=== PATIENT | male | born 1980 | race Caucasian/White ===

== ENCOUNTER 2017-04-04 08:55 | Emergency (ER) | payer BC, SELFPAY ==
[2017-04-04 08:55] VITALS: BP 161/92; PULSE 80; RESP 18; TEMP 36.6; O2SAT 97; BMI 30.2
--- NOTE | 2017-04-04 09:29 | RAD_ITS ---
STUDY: X-RAY - LEFT KNEE REASON FOR EXAM: Male, 36 years old. Lateral knee pain following a fall. TECHNIQUE: 4 view(s) of the knee. COMPARISON: None. FINDINGS: Normal visualized distal femur. Normal visualized proximal tibia and fibula. Normal proximal tibiofibular articulation. Normal medial femorotibial compartment. Normal lateral femorotibial compartment. Normal patellofemoral articulation. Prepatellar soft tissue swelling. RAD/Knee 4 or More Views IMPRESSION: Mild prepatellar soft tissue swelling. Electronically Signed: Matt Mcallister MD at 9:58 EST Tel [phone], Service support ,
--- NOTE | 2017-04-04 09:31 | ED.VISSUMM ---
- ER Visit Summary Date of Service: 04/04/17 Chief Complaint: Left knee pain History of Present Illness: The patient is a 36 M outside his office today slipped on mud and weight high needles injuring his left lower thigh knee area. Is more comfortable to try to bear weight. No prior history. No prior knee surgery. Denies any hip ankle or foot pain. Denies other injuries. No head injury. Physical Examination: Well appearing male. Vital signs are stable afebrile. H EENT exam unremarkable atraumatic. Nontender. Lungs clear to auscultation bilaterally. Heart rate and rhythm no murmur. Chest wall nontender. Abdomen soft nontender. Girdle intact. Nontender. Extremities he has full range of motion all 4 extremities. No deformities. His left lower thigh knee area has tenderness superior lateral to the patella. There is no effusion. There is no swelling. He has full flexion-extension. ACL PCL, MCL and LCL are intact. There is no joint tenderness. The quadriceps patellar and infra patellar tendons are intact. Left lower leg is nontender. The ankle is nontender nonswollen. The left foot is nontender neurovascularly intact. Full dorsi plantar flexion. Achilles tendon is intact. Normal touch sensation. He is able to wiggle his toes. Test Results: Left knee x-ray no acute abnormality per my read radiologist believes he sees suprapatellar soft tissue swelling. There is no acute bony abnormality. No abnormality of the knee joint. Emergency Department Course and Treatment: Repeat exam patient is doing well at 1040. He will be given Motrin for pain. And crutches for ambulation. He was instructed to ice and Motrin for pain. Follow-up with Dr. Srinivasan if he is not improving. Patient does not need narcotics for this. Treatment Plan: Discharged to follow-up with his primary care physician if not improving orthopedic consultation. Disposition: discharge Impression: Fall with left lower thigh muscle strain and knee sprain This note was generated with [employer] dictation software. It may contain incorrect words, spelling, and punctuation that were not noted in review of the chart prior to signing ED Disposition - Plan for ED Patient: Chief Complaint: Lower Extremity Injury Referrals: Ubaldo Srinivasan MD [Primary Care Provider] -
--- NOTE | 2017-04-04 10:47 | ED.DEP ---
ED Disposition - Plan for ED Patient: Disposition: Home or Assisted Living Chief Complaint: Lower Extremity Injury Instructions: ED Sprain Knee, ED Strain Muscle Ext Referrals: Ubaldo Srinivasan MD [Primary Care Provider] - 1 Week if not improving Additional Instructions: Ice to knee and left lower thigh. Motrin for pain and inflammation and Tylenol as needed. Crutches to walk until pain resolving.
--- NOTE | 2017-04-04 11:05 | ED.RN ---
THIS NURSE IN ROOM TO REVIEW D/C INSTRUCTIONS WITH PT. PT DECLINED INSTRUCTIONS. PT DECLINED CRUTCHES STATES I'LL JUST GO GET SOME. WHEN INFORMED TO FOLLOW UP WITH PCP IN 1 WEEK IF NOT IMPROVING PT STATES I HAVE AN APPOINTMENT TODAY AT 3PM BECAUSE YOU ARE JUST NEVERMIND. PT TOOK INSTRUCTIONS FROM THIS NURSE'S HANDS AND REQUESTED A W/C. PT REFUSED UPDATED VITAL SIGNS. THIS NURSE ASSISTED PT TO VEHICLE VIA W/C.
== END 2017-04-04 11:07 | disposition home or self-care (01) ==
PROVIDERS: Emergency Provider Emergency Medicine; Family Provider Family Medicine; PCP Family Medicine
DX: S76.912A Strain of unspecified muscles, fascia and tendons at thigh level, left thigh, initial encounter (principal); S83.92XA Sprain of unspecified site of left knee, initial encounter; W01.0XXA Fall on same level from slipping, tripping and stumbling without subsequent striking against object, initial encounter; Y93.9 Activity, unspecified; Y92.9 Unspecified place or not applicable; J45.909 Unspecified asthma, uncomplicated; F90.9 Attention-deficit hyperactivity disorder, unspecified type; Z72.0 Tobacco use
CPT/HCPCS: 73564; 99282

== ENCOUNTER → 2017-04-11 07:02 | Outpatient (CLI) | payer BC, SELFPAY ==
--- NOTE | 2017-04-11 07:00 | MRI_ITS ---
STUDY: MRI LEFT KNEE REASON FOR EXAM: Pain at the superior aspect the knee, injury, evaluate quadriceps tendon tear. TECHNIQUE: Standardized fat and water weighted pulse sequences were obtained in all 3 orthogonal planes. COMPARISON: Radiographs 04/04/2017. FINDINGS: Normal medial meniscus. Normal hyaline cartilage of the medial femorotibial compartment. Normal medial femoral condyle and tibial plateau. Normal medial collateral ligamentous complex (MCL). Normal distal semimembranosus, gracilis and semitendinosus tendons. Normal lateral meniscus. Normal hyaline cartilage of the lateral femorotibial compartment. Normal lateral femoral condyle and tibial plateau. Normal proximal tibiofibular articulation. Normal lateral collateral (fibular) ligament. Normal popliteus tendon. Normal biceps femoris tendon. Normal anterior cruciate ligament (ACL). Normal posterior cruciate ligament (PCL). Normal congruent patellofemoral articulation. Normal hyaline cartilage of the patellofemoral compartment. There are sprains of the medial and lateral patellar retinaculum (T2 axial image 16). There is a full-thickness tear of the lateral aspect of the distal quadriceps tendon with a gap of approximately 1.6 cm (T2 sagittal images 19-21), a full-thickness tear of the medial aspect of the quadriceps tendon (T2 sagittal images 12, 13) and a high-grade partial tear of the central quadriceps tendon with retraction of the anterior fibers (T2 sagittal images 15-17). There is a hematoma between the quadriceps tendon tear. Normal patellar tendon. Normal Hoffa's fat pad. There is a small joint effusion. There are strains of the distal vastus medialis and lateralis muscles (T2 axial series 4 images 3-7). There is hemorrhage within the prepatellar bursa (T2 sagittal images 13-21) with a hematocrit effect. The otherwise visualized osseous structures are unremarkable. MRI/Lower Ext Joint Only (Routine) IMPRESSION: Full-thickness incomplete tear of the distal quadriceps tendon with hematoma. Strains of the distal vastus medialis and lateralis muscles. Prepatellar bursal fluid. Sprains of the medial and lateral patellar retinaculum. Small joint effusion. Electronically Signed: Chinmay Ewing MD at 8:59 EST Tel , Service support ,
== END ==
PROVIDERS: Family Provider Family Medicine; PCP Family Medicine; Visit Provider Orthopaedic Surgery
DX: S76.112A Strain of left quadriceps muscle, fascia and tendon, initial encounter (principal); S86.212A Strain of muscle(s) and tendon(s) of anterior muscle group at lower leg level, left leg, initial encounter; X58.XXXA Exposure to other specified factors, initial encounter; M25.462 Effusion, left knee
CPT/HCPCS: 73721

== ENCOUNTER 2017-04-12 05:59 | Day surgery (SDC) | payer BC, SELFPAY ==
[2017-04-12] VITALS (11 sets, daily range): BP systolic 147–185; BP diastolic 84–99; PULSE 98–127; RESP 16–20; TEMP 36.6–37.4; O2SAT 90–97; BMI 32.8
[2017-04-12] MEDS: Cefazolin 2 GM in 0.9% Normal Saline 100 ML IV (07:25)
--- NOTE | 2017-04-12 07:40 | PCM.DC.ORTHO ---
Discharge Diet: No Restrictions - leave dressing clean, dry and intact; follow up in one week, call with increased pain, calf pain, numbness, or if other issues arise; elevate right leg, ankle pumps and ice as needed Discharge Activity: May Not Drive May shower in (days): 1 Ice area for (Minutes): 20 - Every hour while awake. Weight Bearing Status: Weight bearing as tolerated Keep extremity elevated above heart level: Operative Extremity Call your doctor if your incision/area has: Continuous Slow Oozing, Sudden Increased Bleeding, Increased Pain/ Swelling, Increased Redness, Foul Smelling Discharge Call your doctor if you observe: Fever of 101 or Higher, Coldness, Increased Pain, Numbness or Tingling, Change in Color, Calf discomfort Allergies/Adverse Reactions: Allergies No Known Allergies Allergy (Verified 04/10/17 15:18) Medications to take at Discharge Albuterol Inhaler [Ventolin Hfa (SP)] 1 - 2 puff INHALATION Q4H PRN PRN 02/18/15 Dextroamphetamine/Amphetamine [Adderall 20 mg Tablet] 20 mg PO BID 02/18/15 Linacolotide [Linzess] 145 mcg PO DAILY PRN 02/18/15 Fluticasone/Salmeterol [Advair 250-50 Diskus] 1 puff INHALATION BID 06/02/16 Albuterol Aerosols [Ventolin Aerosols] 2.5 mg INHALATION PRN PRN 07/12/16 hydrocodone 7.5 mg-acetaminophen 300 mg tablet 1 tab PO Q6H PRN #30 tab 04/04/17 Oxycodone HCl/Acetaminophen [Percocet 5/325] 1 - 2 tablet PO Q6H PRN PRN 5 Days #40 tablet 04/12/17 The following prescriptions were given: Oxycodone HCl/Acetaminophen [Percocet 5/325] 1 - 2 tablet PO Q6H PRN PRN 5 Days #40 tablet PRN Reason: Pain Primary Care Physician: Ubaldo Srinivasan MD [Primary Care Provider] - Please Follow Up With: Padma Ryan DO - [phone]
[2017-04-12] MEDS: Mupirocin Ointment 22gm Tube 1 APPLIC (09:03)
[2017-04-12] MEDS: Bupivacaine 0.25% 30 ML Vial (09:11)
--- NOTE | 2017-04-12 09:27 | PCM.OPRPT ---
Report of Operation Date of Procedure: 04/12/17 Pre-Operative Diagnosis: left quad tendon tear Post-Operative Diagnosis: same Surgery/Procedure Performed:: left quad tendon repair with 4.75 swivel locks arthrex Type of Anesthesia:: General Anesthesiologist: Lonnie Chopra Estimated Blood Loss (mL): minimal Fluids Replaced: 1400 cc lr Description of Procedure: Preoperative note Patient is a 36-year-old male who fell and twisted his knee and had immediate pain and instability inability to extend his knee. Patient was seen in the emergency room x-rays were negative went to his primary care doctor who was possible for ligamentous instabilities is seen in my office that same day. On exam he was noted to not be able to extend his left knee we then confirmed a quad tendon tear with MRI. Risks benefits and alternatives surgery discussed with patient. 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 Patient aware would like proceed with left quad tendon repair. Operative note Patient seen and examined preoperative holding area. Left knee was marked. Patient was brought to the operating room placed supine on the operating table. Sign, anesthesia, antibiotics were administered. The knee was prepped and draped in usual sterile fashion with tourniquet around his upper thigh. Then began by marking out our incision extending from the proximal pole of the patella about 4 cm proximal. We then performed a timeout. We then used a 15 blade cut through the skin and used Bovie to coagulate all bleeders as we dissected down to the quad tendon. The quad tendon was obviously ruptured off of the proximal pole. We debrided back any loose tendon with a combination of Metzenbaums and rongeur. We then able to visualize the insertion on the patella. We debrided back the insertion on the patella to a bleeding bed. We irrigated the incision with copious amounts of sterile saline numerous times throughout the case as patient has had a history of infections and wound complications in the past. We debrided out the old hematoma. We then drilled with a bone stock are 4.75 and then used our for the 4.75 Arthrex swivel lock we placed fiber tape and locking Krak?w stitch fashion up through the lateral and in the medial aspect of the quad tendon and placed both her medial lateral swivel locks and had good tendon bone contact. We then used the remaining stitches within the anchor and oversewed rthe repair and thru the anterior aspect of the proximal patella and retinaculum for extra strength and then closed the retinaculum with 2 o fiber wire laterally and 0 Vicryl medially. Again irrigated with copious amounts of sterile saline. The incision was closed with subcutaneous 2-0 Vicryl and the skin with neyda we did place a Mariah VAC on top of the incision again the patient has had history with poor wound healing as patient is a smoker as well. Sterile dressings were applied and a brace was applied to the left leg. Patient was extubated receive a postop regional block in the PACU. Patient was transferred to recovery room in stable condition. There were no complications Postoperative note Weight-bear as tolerated left leg with knee locked in extension brace at all times Follow-up in 1 week for VAC VAC change Call with increased pain numbness tingling further issues arise Pharmacy has Percocet Call with concerns This note was generated with [employer] software. It may contain incorrect words, spelling, and punctuation that were not noted in checking the note before signing.
[2017-04-12] MEDS: Ipratropium/Albuterol Sulfate 3 ML AMPUL.NEB INHALATION (10:00)
== END 2017-04-12 11:55 | disposition home or self-care (01) ==
LOC: SDC 06:01 → AC 06:02
PROVIDERS: Family Provider Family Medicine; PCP Family Medicine; Visit Provider Orthopaedic Surgery
PROC: (CPT 27385; principal; 2017-04-12 07:15)
DX: S76.112A Strain of left quadriceps muscle, fascia and tendon, initial encounter (principal); W01.0XXA Fall on same level from slipping, tripping and stumbling without subsequent striking against object, initial encounter; Y93.89 Activity, other specified; Y92.9 Unspecified place or not applicable; Y99.0 Civilian activity done for income or pay; J45.909 Unspecified asthma, uncomplicated; F90.9 Attention-deficit hyperactivity disorder, unspecified type; K58.1 Irritable bowel syndrome with constipation; F17.200 Nicotine dependence, unspecified, uncomplicated; Z79.899 Other long term (current) drug therapy
CPT/HCPCS: 27385; 64447; 94640; J7120; J2405

== ENCOUNTER 2017-06-21 14:00 | Outpatient (RCR) | payer BC, SELFPAY ==
--- NOTE | 2017-05-03 12:39 | HP.PTEVAL_ITS ---
Patient's Visit Information KATIE GOMEZ is a 36 year old M referred to Physical Therapy by DO LUIS ALBERTO Betancourt with a diagnosis of L quad tear with reconstruction. Date of Evaluation: 05/01/17 Physical Therapist: Yaron Brown - Visit Plan Frequency: 2-3x /Week Duration: 2-4 Months Plan: Start with PROM of R knee per protocol. Add in glute sets, HS sets, patellar mobs. Progress ROM per protocol, increase 20deg every 4-5 days after 3 weeks post DOS. - Subjective Subjective: Pt. is here today for his initial evaluation with diagnosis of L quad tear with reconstruction. DOS: 04/12/17. Pt. is currently WBAT with crutches with his TROM brace locked in extension. Pt. reports minimal issues with walking and with negotiating steps with HR and step to pattern. Pt. reports icing at home frequently, but no exercises currently. Pt. 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 Pt. did have a wound vac on his incision due to hisorty of MRSA. Pt. is hopeful to get back to a point where he can run, snow board, and complete all gym exercises without issues. - Pain L knee Pain Intensity (Out of 10): 3 Pain Intensity Range: 0, 6 - Objective POSTURE: Pt. has normal knee positioning in stance. Pt. uses brace, pt. has decreased wt. shift to left side, but is able to stand without crutches. PALPATION: PT. has increased tenderness throughout superior aspect of knee. Pt. has increased soreness with palpation throughout thigh as well. Pt. reports no hip soreness or pain in calf. NEUROLOGICAL: Pt. has normal sensation throughout bilateral LEs to light and sharp touch. Pt. has bilateral 2+ achilles tendon DTR. ROM: L ankle full ROM, L hip- flexion, abd, add, ext all with in normal limits. L knee 0-0-28deg. Pt. had increased pain with increased flexion. RLE- ankle/knee/hip all with in normal limits. Pt. has tight HS bilaterally. MMT: RLE- 5/5 throuhgout; LLE- ankle- 5/5; knee- DNT due to surgery risk; hip- flexion 3-/5 abd 3+/5, ext 3+/5. GAIT: Pt. ambulates with minimal wt. bearing through LLE, he ambulates with crutches. STAIRS: Pt. completes withstep to pattern, properly with use of crutches and 1 HR. - Goals Goal 1:: Pt. to be I with HEP. Goal Time Frame: 4-6 Weeks Goal 2:: Pt. to have increased knee ROM to full of L knee. Goal Time Frame: 6-8 Weeks Goal 3:: Pt. to ambulate without AD with normalized gait pattern without increase in symptoms. Goal Time Frame: 4-6 Weeks Goal 4:: Pt. to sleep throughout the night with 0/10 pain in L knee allowing for increased quality of life. Goal Time Frame: 2-4 Weeks Goal 5:: Pt. have increased LLE strength to full 5/5 allowing decreased stress applied to L quad/knee with all functional mobility. Goal Time Frame: 16 weeks Goal 6:: Pt. to get back to all work and recreational activities without limitation. Goal Time Frame: 16 weeks. - Rehabilitation Potential Physical Therapy Diagnosis: Pt. has signs and symptoms consistent with L quad tear and reconstruction. Pt. has subsequent hypomobility, weakness, difficulty with walking, increased pain and difficulty completing all ADLs. Pt. would benefit from PT to increase knee ROM, decrease pain, increase LLE strength, progress back to functional mobility, and progress back to all recreationa/work activities. Rehabilitation Potential: Excellent - Anticipated Interventions Patient/Client Instruction: Educate patient on: Condition, Plan of Care, Risk Factors, Benefits of Fitness Program For the Purpose of:: To foster healthy habits, To improve decision making, To facilitate caregiver knowledge, To improve self management, To prevent re-injury , To improve ability to perform tasks related to life management, To improve tolerance to ADL's Therapeutic Exercise to Include: Strength training, Power training, Balance training, Coordination, Agility training, Body mechanics, Postural training, Flexibilty training, Gait and locomotor training, Passive ROM, Active ROM For the Purpose of:: To decrease pain, To decrease swelling/inflammation, To increase ROM, To improve nutrient delivery to tissue, To increase oxygenation perfusion, To improve muscle performance and motor function, To improve ability to perform ADL's, To increase tolerance to activity/condition/position, To improve gait and locomotor functions, To improve health of tissue, To decrease soft tissue restriction, To increase flexibility/ROM, To improve endurance, To improve balance, To improve safety with gait, To assume or resume ADL's Manual Therapy Techniques to Include: Mobilization, Passive ROM, Soft tissue mobilization For the Purpose of:: To decrease pain, To decrease swelling/inflammation, To increase ROM, To improve nutrient delivery to tissue, To increase oxygenation perfusion, To improve muscle performance and motor function IF ES: Yes Other electric stimulation: Yes - NMES for quad activation Cryotherapy (ice pack, ice massage): Yes For the Purpose of:: To decrease pain, To decrease swelling/inflammation, To increase ROM, To improve nutrient delivery to tissue, To increase oxygenation perfusion, To improve muscle performance and motor function Thank you for the opportunity to evaluate your patient. For Medicare and Medicare HMO plans, please review the plan of care and approve it. It will need to be FAXED BACK to us at [phone] for Medicare purposes. Please let me know if there are questions or concerns regarding this plan of care. Physician Signature: Date:
--- NOTE | 2017-06-20 07:45 | HP.PTREVAL_ITS ---
Padma Ryan, DO, It has been my pleasure to treat KATIE GOMEZ over the last 5 visits for L quad tear with reconstruction. Please see the progress note below for an update on the physical therapy plan of care! Subjective: Pt. reports missing last visit due to family emergency where spouse' s father was having surgery on carotid artery. Pt. reports increased exercises at home. Discussed pt. about functional bracing and how physician said this is okay, but really wants him to be stronger and have better motion prior DCing imobilizer. Objective/Function: Pt. cotinues to have marked knee flexion loss, improved knee ext with over pressure, but lacks TKE with gait. Pt. has increased control with CKC exericses. Pt. again instructed to increase ROM stretching, quad control/strength. Pt. consents. ROM: 0-0-80 deg PROM. 0-0-70 AROM. L knee. Disscussed about being proactive with stretcing into flexion at this point in time. Pt. repors understanding. MMT: LLE- ankle 5/5 throughout. Pt. has improved straight leg raise, but does have 3-5deg extensor lag with raising , knee flexion 4/5; hip- flexion 4/5, abd 4/5, ext 4/5. GAIT: Pt is able to ambualte without AD and without immobilizing brace. Pt. does have limited kne flexion during swing phase, with increased L hip hiking to increase foot clearance. He does have TKE in stance with improved stability. Decerased step length with RLE. Pt. is improving but slowly with recovery. Pt. has attended 5 visits in total of PT. He missed substantial times due to illness and family emergency. Pt. is behind protocol with his recovery and I have talked to him extensively about. Plan Plan: Pt. needs date extension to increase to increase ROM, strength, gait mobility. Pt. was hindered with initial PT due to being sick and with family emergencies. Pt. is not to a functional point of mobility and needs greater motion/strength to get back to prior levels of function. Requesting an extension of time to get rest of 7 allowed visits completed. Goals Goal 1:: Pt. to be I with HEP. Goal Time Frame: 4-6 Weeks Goal 2:: Pt. to have increased knee ROM to full of L knee. Goal Time Frame: 4-6 Weeks Goal Progress: Progressing Goal 3:: Pt. to ambulate without AD with normalized gait pattern without increase in symptoms. Goal Time Frame: 4-6 Weeks Goal Progress: Progressing Goal 4:: Pt. to sleep throughout the night with 0/10 pain in L knee allowing for increased quality of life. Goal Time Frame: 2-4 Weeks Goal Progress: Progressing Goal 5:: Pt. have increased LLE strength to full 5/5 allowing decreased stress applied to L quad/knee with all functional mobility. Goal Time Frame: 6-8 Weeks Goal Progress: Progressing Goal 6:: Pt. to get back to all work and recreational activities without limitation. Goal Time Frame: 8-12 Weeks Goal Progress: Progressing Anticipated Interventions Patient/Client Instruction: Educate patient on: Condition, Plan of Care, Risk Factors, Benefits of Fitness Program For the Purpose of:: To foster healthy habits, To improve decision making, To facilitate caregiver knowledge, To improve self management, To prevent re-injury , To improve ability to perform tasks related to life management, To improve tolerance to ADL's Therapeutic Exercise to Include: Strength training, Power training, Balance training, Coordination, Agility training, Body mechanics, Postural training, Flexibilty training, Gait and locomotor training, Passive ROM, Active ROM For the Purpose of:: To decrease pain, To decrease swelling/inflammation, To increase ROM, To improve nutrient delivery to tissue, To increase oxygenation perfusion, To improve muscle performance and motor function, To improve ability to perform ADL's, To increase tolerance to activity/condition/position, To improve gait and locomotor functions, To improve health of tissue, To decrease soft tissue restriction, To increase flexibility/ROM, To improve endurance, To improve balance, To improve safety with gait, To assume or resume ADL's Manual Therapy Techniques to Include: Mobilization, Passive ROM, Soft tissue mobilization For the Purpose of:: To decrease pain, To decrease swelling/inflammation, To increase ROM, To improve nutrient delivery to tissue, To increase oxygenation perfusion, To improve muscle performance and motor function IF ES: Yes Other electric stimulation: Yes - NMES for quad activation Cryotherapy (ice pack, ice massage): Yes For the Purpose of:: To decrease pain, To decrease swelling/inflammation, To increase ROM, To improve nutrient delivery to tissue, To increase oxygenation perfusion, To improve muscle performance and motor function Please do not hesitate to contact me at [phone] by phone or Fax: if you have questions or concerns regarding this new plan of care! Sincerely, Yaron Brown
--- NOTE | 2017-10-31 10:37 | HP.PTDCNRP_ITS ---
HP - Discharge Summary (1) - Patient Information KATIE GOMEZ was seen in my office for initial evaluation on 05/01/17. The following Plan of Care was established for this patient: Initial Frequency: 2-3x /Week Initial Duration: 2-4 Months - Anticipated Interventions Patient/Client Instruction: Educate patient on: Condition, Plan of Care, Risk Factors, Benefits of Fitness Program For the Purpose of:: To foster healthy habits, To improve decision making, To facilitate caregiver knowledge, To improve self management, To prevent re-injury , To improve ability to perform tasks related to life management, To improve tolerance to ADL's Therapeutic Exercise to Include: Strength training, Power training, Balance training, Coordination, Agility training, Body mechanics, Postural training, Flexibilty training, Gait and locomotor training, Passive ROM, Active ROM For the Purpose of:: To decrease pain, To decrease swelling/inflammation, To increase ROM, To improve nutrient delivery to tissue, To increase oxygenation perfusion, To improve muscle performance and motor function, To improve ability to perform ADL's, To increase tolerance to activity/condition/position, To improve gait and locomotor functions, To improve health of tissue, To decrease soft tissue restriction, To increase flexibility/ROM, To improve endurance, To improve balance, To improve safety with gait, To assume or resume ADL's Manual Therapy Techniques to Include: Mobilization, Passive ROM, Soft tissue mobilization For the Purpose of:: To decrease pain, To decrease swelling/inflammation, To increase ROM, To improve nutrient delivery to tissue, To increase oxygenation perfusion, To improve muscle performance and motor function IF ES: Yes Other electric stimulation: Yes - NMES for quad activation Cryotherapy (ice pack, ice massage): Yes For the Purpose of:: To decrease pain, To decrease swelling/inflammation, To increase ROM, To improve nutrient delivery to tissue, To increase oxygenation perfusion, To improve muscle performance and motor function This patient was last seen in our office 06/21/17. Pertinent comments regarding their Physical therapy will appear below: Pt. was treated for his L quad tendon repair. Focus on PT was regaining motion during his time in PT. Pt. was slowly progressing with ROM to ~90deg of flexion. Pt. stopped attending PT at that point in time. He has not been seen in ~4 months and will be DC from PT at this point in time. At this point I will be discontinuing this patient from physical therapy. I would be happy to see this patient again in the future if found appropriate by the physician. Thank you! Yaron Brown
== END 2017-06-21 19:00 | disposition home or self-care (01) ==
LOC: PT 14:00
PROVIDERS: Family Provider Family Medicine; PCP Family Medicine; Visit Provider Orthopaedic Surgery
DX: Z98.890 Other specified postprocedural states (principal)
CPT/HCPCS: 97110; 97162

== ENCOUNTER → 2017-10-31 12:53 | Outpatient (CLI) | payer OTHER, SELFPAY ==
--- NOTE | 2017-10-31 13:03 | RAD_ITS ---
STUDY: X-RAY - LUMBAR SPINE REASON FOR EXAM: Male, 36 years old. Pain TECHNIQUE: 5 view(s) of the lumbar spine were obtained. COMPARISON: None FINDINGS: There is normal alignment and curvature of the lumbosacral spine with no acute fractures or dislocations but with minimal degenerative changes at T11-T12 and a slight irregularity of the inferior endplate of T12. There is also some narrowing of the T12-L1 disc space. The facet joints are normal. The paravertebral soft tissues are normal.. RAD/L/S Spine Min 4 Views IMPRESSION: Minimal degenerative changes at T11-T12 and T12-L1. No fracture Electronically Signed: Ed Woodward, at 2:09 EDT Tel , Service support ,
--- NOTE | 2017-10-31 13:03 | RAD_ITS ---
STUDY: X-RAY - BILATERAL RIBS WITH CHEST REASON FOR EXAM: Male, 36 years old. Pain TECHNIQUE - RIBS: 4 view(s) of the ribs. TECHNIQUE - CHEST: 1 view COMPARISON: None. FINDINGS - RIBS : No acute fractures FINDINGS - CHEST: Bibasal platelike atelectatic changes. No pneumonia. The heart and mediastinum are normal.. No pneumothoraces RAD/Ribs Mars Min 4V w/PA Chest IMPRESSION: RIBS: No acute fracture CHEST: Bibasilar platelike atelectatic changes. No pneumothoraces Electronically Signed: Ed Woodward, at 1:22 EDT Tel , Service support ,
[2017-10-31 14:36] LABS: Absolute Lymphocyte Count 0.72 X10^3/ul (0.83-4.51); Absolute Neutrophil Count 4.8 X10^3/uL (2.0-7.7); Basophil# 0.04 X10^3/uL; Basophil% 0.6 % (0-1); Eosinophil# 0.39 X10^3/uL; Eosinophils% 5.9 % (0-5); Hematocrit 46.6 % (40-54); Hemoglobin 15.1 g/dl (13.0-16.5); Lymphocyte # 0.72 X10^3/ul (4.0); Lymphocyte % 10.9 % (19-41); Mean Corp Hgb Conc 32.4 g/gl (32-36); Mean Corpuscular Hgb 33.1 pg (27.0-32.0); Mean Corpuscular Volume 102.2 fL (80-94); Mean Platelet Vol. 10.2 fl (6.2-12.0); Monocyte# 0.66 X10^3/uL; Neutrophil % 72.6 % (47-70); Platelet Count 162 K/mm3 (150-450); RBC Distribution Width CV 13.9 % (11.6-14.6); RBC Distribution Width SD 51.9 fl (35.1-43.9); Red Blood Count 4.56 M/mm3 (4.6-6.2); White Blood Count 6.6 K/mm3 (4.4-11.0)
[2017-10-31 14:39] LABS: POSITIVE COUNT NO; POSITIVE DIFFERENTIAL NO; POSITIVE MORPHOLOGY NO
[2017-10-31 14:48] LABS: ALB/GLOB Ratio 0.9 RATIO (0.9-2.4); AST(SGOT) 144 U/L (15-37); Alanine Aminotransfer ALT/SGPT 109 U/L (16-61); Albumin, Serum 3.8 g/dL (3.2-5.0); Alkaline Phosphatase 152 U/L (45-117); Anion Gap 11 (5-15); BUN 8 mg/dL (7-18); BUN/Creat Ratio 9.2 RATIO (10-20); Chloride 102 mmol/L (98-107); Creatinine, Serum 0.87 mg/dL (0.70-1.30); EST Glomerular Filtration Rate 107 mL/min (>60); Est Glom Filt Rate - Afr Amer 129 mL/min (>60); Globulin 4.4 g/dL (2.2-4.2); Glucose 98 mg/dL (74-106); Potassium 3.7 mmol/L (3.5-5.1); Protein, Total 8.2 g/dL (6.4-8.2); Sodium Level 139 mmol/L (136-145); Thyroid Stim Hormone (TSH) 0.74 uIU/mL (0.358-3.74)
== END ==
PROVIDERS: Family Provider Family Medicine; PCP Family Medicine; Visit Provider Nurse Practitioner Family
DX: M54.9 Dorsalgia, unspecified (principal); R63.5 Abnormal weight gain
CPT/HCPCS: 36415; 71111; 72110; 80053; 84443; 85025

== ENCOUNTER → 2018-04-10 17:04 | Outpatient (CLI) | payer OTHER, SELFPAY ==
[2018-04-10 17:42] LABS: Absolute Neutrophil Count 4.8 X10^3/uL (2.0-7.7); Basophil# 0.05 X10^3/uL; Basophil% 0.7 % (0-1); Eosinophil# 0.22 X10^3/uL; Eosinophils% 3.2 % (0-5); Hematocrit 39.3 % (40-54); Hemoglobin 13.3 g/dl (13.0-16.5); Lymphocyte % 16.1 % (19-41); Mean Corp Hgb Conc 33.8 g/gl (32-36); Mean Corpuscular Hgb 32.9 pg (27.0-32.0); Mean Corpuscular Volume 97.3 fL (80-94); Mean Platelet Vol. 10.7 fl (6.2-12.0); Monocyte# 0.62 X10^3/uL; Monocyte% 9.1 % (0-10); Neutrophil # 4.84 X10^3/uL (2.7-7.7); Neutrophil % 70.8 % (47-70); Platelet Count 126 K/mm3 (150-450); RBC Distribution Width SD 55.8 fl (35.1-43.9); Red Blood Count 4.04 M/mm3 (4.6-6.2); White Blood Count 6.8 K/mm3 (4.4-11.0)
[2018-04-10 17:44] LABS: POSITIVE COUNT NO; POSITIVE DIFFERENTIAL NO; POSITIVE MORPHOLOGY NO
== END ==
PROVIDERS: Family Provider Family Medicine; PCP Family Medicine; Visit Provider Family Medicine
DX: R00.0 Tachycardia, unspecified (principal)
CPT/HCPCS: 36415; 85025

== ENCOUNTER → 2018-05-30 16:00 | Outpatient (CLI) | payer OTHER, SELFPAY ==
[2018-05-30 17:45] LABS: Amphetamine Urine VISTA POSITIVE (<1000 ng/mL); Barbiturate Urine VISTA NEGATIVE (< 200 ng/mL); Benzodiazepine Urine VISTA NEGATIVE (< 200 ng/mL); Cocaine Urine VISTA NEGATIVE (< 300 ng/mL); Ecstacy Urine VISTA NEGATIVE (< 500 ng/mL); Methadone Urine VISTA NEGATIVE (< 300 ng/mL); PCP Urine VISTA NEGATIVE (< 25 ng/mL); THC Urine VISTA NEGATIVE (< 50 ng/mL); Vista UDS pH Range 6
== END ==
PROVIDERS: Family Provider Family Medicine; PCP Family Medicine; Referring Provider Family Medicine; Visit Provider Family Medicine
DX: F98.8 Other specified behavioral and emotional disorders with onset usually occurring in childhood and adolescence (principal)
CPT/HCPCS: 80307

== ENCOUNTER → 2018-07-17 13:09 | Outpatient (CLI) | payer OTHER, SELFPAY ==
--- NOTE | 2018-07-17 13:11 | RAD_ITS ---
STUDY: X-RAY - RIGHT KNEE REASON FOR EXAM: Right knee pain. TECHNIQUE: 4 view(s) of the knee. COMPARISON: None. FINDINGS: There is a small fibroxanthoma in the posterior lateral aspect of the distal femoral diaphysis. Normal visualized proximal tibia and fibula. Normal proximal tibiofibular articulation. Normal medial femorotibial compartment. Normal lateral femorotibial compartment. Normal patellofemoral articulation. The soft tissue structures are unremarkable. RAD/Knee 4 or More Views IMPRESSION: Small fibroxanthoma in the distal femur. Otherwise, unremarkable x-ray examination of the right knee. Electronically Signed: Chinmay Ewing MD at 15:20 EDT Tel , Service support ,
--- NOTE | 2018-07-17 13:11 | RAD_ITS ---
STUDY: X-RAY - LEFT TIBIA AND FIBULA REASON FOR EXAM: Left lower leg pain. TECHNIQUE: 2 view(s) of the tibia and fibula were obtained. COMPARISON: Radiographs of the left knee 04/04/2017. FINDINGS: Normal visualized tibia. Normal visualized fibula. The soft tissue structures are unremarkable. RAD/Tibia & Fibula 2 Views IMPRESSION: Normal x-ray examination of the left tibia and fibula. Electronically Signed: Chinmay Ewing MD at 15:23 EDT Tel , Service support ,
== END ==
PROVIDERS: Family Provider Family Medicine; PCP Family Medicine; Referring Provider Orthopaedic Surgery; Visit Provider Orthopaedic Surgery
DX: M25.561 Pain in right knee (principal); M79.662 Pain in left lower leg
CPT/HCPCS: 73564; 73590

== ENCOUNTER → 2018-08-05 12:08 | Outpatient (CLI) | payer OTHER, SELFPAY ==
--- NOTE | 2018-08-05 12:11 | VDLE_ITS ---
Reason For Study: Swelling RIGHT GSV is normal. CFV is compressible, spontaneous, phasic, competent and demonstrates normal augmentation. FV is compressible, spontaneous, phasic, competent and demonstrates normal augmentation. POP V is compressible, spontaneous, phasic, competent and demonstrates normal augmentation. T/P Trunk is compressible. PTV is compressible. RT PerV is compressible. Procedure Exam performed in department. A preliminary report was called and/or faxed to [facility]. Interpretation Summary Deep veins of the right lower extremity are patent and compressible segmentally. There is no evidence of right lower extremity deep vein thrombosis. Valvular competence appears intact within the proximal deep venous system on the right . The right greater saphenous vein appears patent and compressible segmentally. Ordering Physician: Padma Ryan Referring Physician: Ubaldo Srinivasan Performed By: Nellie Lara RVT
== END ==
PROVIDERS: Family Provider Family Medicine; PCP Family Medicine; Referring Provider Orthopaedic Surgery; Visit Provider Orthopaedic Surgery
DX: M79.89 Other specified soft tissue disorders (principal)
CPT/HCPCS: 93971

== ENCOUNTER → 2018-08-13 14:00 | Outpatient (CLI) | payer OTHER, SELFPAY | PROVIDERS: Family Provider Family Medicine; PCP Family Medicine; Referring Provider Otolaryngology; Visit Provider Otolaryngology | DX: J32.9 Chronic sinusitis, unspecified (principal) | CPT/HCPCS: 87070; 87077; 87186; 87205 ==

== ENCOUNTER 2018-08-13 17:29 | Inpatient (IN) | payer OTHER, SELFPAY ==
[2018-08-13] VITALS (17 sets, daily range): BP systolic 105–164; BP diastolic 67–84; PULSE 111–144; RESP 0–29; TEMP 37–39.6; O2SAT 90–94; BMI 36.5; BMI 37.6
--- NOTE | 2018-08-13 17:36 | ED.RN ---
CHARGE NURSE INFORMED OF PT SEPSIS ALERT FROM TRIAGE.
--- NOTE | 2018-08-13 17:45 | EKG12_ITS ---
Test Reason : FEVER Blood Pressure : / mmHG Vent. Rate : 130 BPM Atrial Rate : 130 BPM P-R Int : 138 ms QRS Dur : 088 ms QT Int : 310 ms P-R-T Axes : 059 019 039 degrees QTc Int : 456 ms Sinus tachycardia Possible Left atrial enlargement Borderline ECG Confirmed by YUSUF FREIRE, DELGADO ([id number]), manuscript editor TIMOTHY UMRPHY ([id number]) on 08/15/2018 10:52:15 AM Referred By: Anthony Ríos Confirmed By:LAURITA GOLDBERG MD
--- NOTE | 2018-08-13 17:51 | ED.VISSUMM ---
- ER Visit Summary Date of Service: 08/13/18 Chief Complaint: Fever History of Present Illness: The patient is a 37 M who presents with fever and shortness of breath. Patient states that for the past 6 months he has had a sinus infection. Is been multiple rounds of antibiotics. He states he saw his ear nose and throat today and they called in an antibiotic and also took a specimen for culture. He states that last night he had fever up to 104. He notes some shortness of breath as well as a cough. Those symptoms have continued to today. He notes generalized myalgias. He is a smoker. He also has a history of asthma IBS and ADD. Physical Examination: Temperature 103.2 heart rate of 144 respirations are 27 pulse ox is 90% on 2 L blood pressure 153/68 Gen: Well-nourished well-developed Head: Normocephalic atraumatic Eyes: Perrl EOMI ENT: TMs clear mucous membranes Neck: Supple no lymphadenopathy no JVD nontender CVS: Regular rate tachycardic rhythm no murmurs normal S1-S2 Respiratory: Patient is tachypneic. Decreased breath sounds on the right. Faint expiratory wheeze right lower and right mid lung chest nontender Abdomen: Soft nontender nondistended normal bowel sounds no masses Back: Nontender Extremity: Nontender no edema Skin: Normal color no rash diaphoretic Neuro: alert orientated ?3 CN II-XII intact normal strength Psych: Normal affect normal mood Test Results: White count 19.5. Hemoglobin 12.6. Platelets are 95. Creatinine normal. Sodium 127. CO 2 is 20. Total bilirubin is 3.5. Direct bilirubin 1.75. INR 1.9. PTT 41.3. D-dimer 2.18. Fibrinogen 442. LDH is 290. Lactic acid 5.2. Chest x-ray in my opinion demonstrates a pneumonia. A CT of the head and sinuses were obtained to rule out abscess or other complicating factors from his sinusitis that showed pansinusitis. CT the chest demonstrated consolidation in the right lower lobe consistent with his physical exam. Emergency Department Course and Treatment: IV was established patient received Tylenol, aerosols, and IV fluids. Patient was able to obtain data from his pharmacy which shows his last antibiotic was doxycycline from April 25. I gave him Rocephin and azithromycin after blood cultures. His heart rate is improved his temperature is improved. His work of breathing is improved. Patient has pneumonia with septic shock and concerned about the possibility of DIC. I spoke with Dr. Weaver and Dr. Ríos. Patient will be admitted to the ICU. Impression: 1. Pneumonia 2. Septic shock This note was generated with [employer] dictation software. It may contain incorrect words, spelling, and punctuation that were not noted in review of the chart prior to signing ED Disposition - Plan for ED Patient:
[2018-08-13] MEDS: Ipratropium/Albuterol Sulfate 3 ML AMPUL.NEB INHALATION ×3 (18:00→23:51)
[2018-08-13] MEDS: Albuterol 2.5 MG/3 ML VIAL.NEB. INHALATION ×2 (18:00)
[2018-08-13] MEDS: 0.9% Normal Saline 1,000 ML 999 ML IV ×5 (18:09→22:59)
[2018-08-13 18:19] LABS: Absolute Lymphocyte Count 0.74 X10^3/ul (0.83-4.51); Absolute Neutrophil Count 17.4 X10^3/uL (2.0-7.7); Basophil# 0.02 X10^3/uL; Basophil% 0.1 % (0-1); Eosinophil# 0.01 X10^3/uL; Eosinophils% 0.1 % (0-5); Hematocrit 37.5 % (40-54); Hemoglobin 12.6 g/dl (13.0-16.5); Lymphocyte # 0.74 X10^3/ul (4.0); Lymphocyte % 3.8 % (19-41); Mean Corp Hgb Conc 33.6 g/gl (32-36); Mean Corpuscular Hgb 30.1 pg (27.0-32.0); Mean Corpuscular Volume 89.7 fL (80-94); Mean Platelet Vol. 10.3 fl (6.2-12.0); Monocyte# 1.17 X10^3/uL; Neutrophil # 17.36 X10^3/uL (2.7-7.7); Neutrophil % 88.9 % (47-70); Platelet Count 95 K/mm3 (150-450); RBC Distribution Width CV 16.9 % (11.6-14.6); RBC Distribution Width SD 55.1 fl (35.1-43.9); Red Blood Count 4.18 M/mm3 (4.6-6.2); White Blood Count 19.5 K/mm3 (4.4-11.0)
[2018-08-13 18:25] LABS: International Normalized Ratio 1.9; Prothrombin Time (Protime)PT. 21.6 SECONDS (11.7-14.9)
[2018-08-13 18:26] LABS: Partial Thromboplast Time 41.3 Seconds (24.1-36.2)
[2018-08-13 18:31] LABS: ALB/GLOB Ratio 0.7 RATIO (0.9-2.4); AST(SGOT) 116 U/L (15-37); Alanine Aminotransfer ALT/SGPT 46 U/L (16-61); Albumin, Serum 3.2 g/dL (3.2-5.0); Alkaline Phosphatase 96 U/L (45-117); Anion Gap 13 (5-15); BUN 10 mg/dL (7-18); BUN/Creat Ratio 10.4 RATIO (10-20); Chloride 94 mmol/L (98-107); Creatinine, Serum 0.96 mg/dL (0.70-1.30); EST Glomerular Filtration Rate 94 mL/min (>60); Est Glom Filt Rate - Afr Amer 114 mL/min (>60); Globulin 4.9 g/dL (2.2-4.2); Glucose 111 mg/dL (74-106); Potassium 3.5 mmol/L (3.5-5.1); Protein, Total 8.1 g/dL (6.4-8.2); Sodium Level 127 mmol/L (136-145)
[2018-08-13] MEDS: Acetaminophen 500 MG Tablet 1000 MG PO (18:31)
[2018-08-13 18:32] LABS: Differential Indicated SCAN CRITERIA MET; POSITIVE COUNT NO; POSITIVE DIFFERENTIAL NO; POSITIVE MORPHOLOGY YES
[2018-08-13 18:45] LABS: Lactic Acid 5.2 mmol/L (0.4-2.0)
[2018-08-13 18:50] LABS: Bilirubin, Direct 1.75 mg/dL (0.00-0.30); Differential Comment SCANNED
[2018-08-13 18:56] LABS: Immature Platelet Fraction 7.9 % (1.0-7.9); RET-HE 33.9 pg (30-35)
--- NOTE | 2018-08-13 19:04 | RAD_ITS ---
STUDY: X-RAY CHEST REASON FOR EXAM: Male, 37 years old. Cough, fever TECHNIQUE: Frontal and lateral views COMPARISON: October 31, 2017 FINDINGS: The lungs are not fully expanded. Basilar atelectasis, right more than left. Normal size heart. Normal mediastinum and sherita. Normal visualized pulmonary arteries. Normal visualized aortic arch and descending thoracic aorta. Mild degenerative changes of the thoracic spine. Slight wedge compression of a lower thoracic/upper lumbar segment. Normal visualized ribs, clavicles, and shoulders. There is no demonstrated abnormality of the visualized soft tissue structures of the upper abdomen. RAD/Chest PA and Lateral IMPRESSION: Mild basilar scarring/atelectasis. Electronically Signed: Jack Chris DO at 19:23 EDT Tel [phone], Service support ,
[2018-08-13 19:12] LABS: LDH 290 U/L (87-241)
[2018-08-13 19:16] LABS: D-Dimer Quantitative (DVT/PE) 2.18 FEU/ug/m (0.27-0.49)
[2018-08-13 19:18] LABS: Color, Urine Amber (Yellow); Glucose, Dipstick Normal (Normal); Ketone-Dipstick 15 mg/dl (Negative); Leukocyte Esterase-Dipstick 25 /ul (Negative); Nitrite-Dipstick Negative (Negative); Occult Blood-Urine 10 /ul (Negative); Protein-Dipstick 30 mg/dl (Negative); Specific Gravity, Urine 1.015 (1.002-1.030); Urine Bilirubin Dipstick 3 mg/dL (Negative); Urine Clarity Clear (Clear); Urine Urobilinogen 4 mg/dl (Normal)
[2018-08-13 19:22] LABS: Bacteria 1+ /hpf (None Seen); Mucous, Urine 2+ /hpf (<or=2+); Red Blood Cells-Urine 0-5 SEEN /hpf (0-5); Squamous Epithelial Cells - UA 0-5 SEEN /hpf (0-5); White Blood Cells 0-5 SEEN /hpf (0-5)
--- NOTE | 2018-08-13 19:36 | ED.RN ---
DR. WOLF INFORMED OF TEMPERATURE 102.1. NO NEW ORDERS AT THIS TIME, WILL CONTINUE TO MONITOR.
--- NOTE | 2018-08-13 19:38 | CT_ITS ---
STUDY: CT FACIAL BONES WITHOUT CONTRAST REASON FOR EXAM: Male, 37 years old. Sinusitis RADIATION DOSAGE (If Supplied By Facility): CTDIvol = ( 29.38 ) mGy, DLP = ( 606.22 ) mGycm TECHNIQUE: The patient was scanned in a multi detector CT scanner. Sagittal and coronal images were reconstructed. Individualized dose optimization techniques were used for this CT. COMPARISON: None. FINDINGS: Normal soft tissue structures. Normal orbital perales and orbital contents. Normal nasal bones and anterior nasal spine. Normal facial bones. There is no demonstrated fracture. Mucosal thickening of the visualized paranasal sinuses. Prior resection of the ostiomeatal complexes. CT/Sinus/Facial Bone IMPRESSION: Mucosal thickening of the visualized paranasal sinuses compatible with pansinusitis. Electronically Signed: Jack Chris DO at 20:20 EDT Tel [phone], Service support ,
--- NOTE | 2018-08-13 19:38 | CT_ITS ---
STUDY: CT BRAIN WITHOUT CONTRAST REASON FOR EXAM: Male, 37 years old. Sinusitis RADIATION DOSAGE (If Supplied By Facility): CTDIvol = ( 44.99 ) mGy, DLP = ( 846.73 ) mGycm TECHNIQUE: Transaxial CT imaging of the brain was performed without administration of intravenous contrast material. Individualized dose optimization techniques were used for this CT. COMPARISON: No relevant priors. FINDINGS: Normal soft tissue structures. Normal calvarium. Normal size ventricles and extra-axial spaces for the patient's age. Normal white matter tracts of the cerebral hemispheres. Normal basal ganglia and thalami. Normal brainstem. Normal cerebellum. There is no intracranial hemorrhage. There are no findings of an acute ischemic infarction. Mucosal thickening of the visualized paranasal sinuses. CT/Brain/Head without Contrast IMPRESSION: Normal unenhanced CT scan of the brain. Paranasal sinus disease. Electronically Signed: Jack Chris DO at 20:18 EDT Tel [phone], Service support ,
--- NOTE | 2018-08-13 19:38 | CT_ITS ---
STUDY: CTA CHEST REASON FOR EXAM: Male, 37 years old. Shortness of breath, cough RADIATION DOSAGE (If Supplied By Facility): CTDIvol = ( 16.23 ) mGy, DLP = ( 570.72 ) mGycm TECHNIQUE: The examination was performed with the intravenous administration of 100ml IV Isovue 370. Post-processing of the angiographic images was performed, with multiplanar reformation and 3D reconstruction. Individualized dose optimization techniques were used for this CT. COMPARISON: None. FINDINGS: Normal enhancement of the main pulmonary artery and right and left pulmonary arteries. Normal enhancement of the bilateral peripheral pulmonary arteries. There is no demonstrated pulmonary embolism. Normal thoracic aorta and visualized great vessels. There is no demonstrated aortic dissection. Normal heart and pericardium. Mild adenopathy of the mediastinum. Normal hilar regions. Normal visualized trachea and bronchi. There is a right lower lobe consolidation. Narrowing of the right lower lobe bronchioles. Normal pleura. Bilateral basilar atelectasis. Slightly elevated right hemidiaphragm. Normal chest wall structures. Normal osseous structures. Cholelithiasis. Prominent spleen. Cirrhosis of the liver with mild varicosity. CT/CTA Chest W/WO Contrast IMPRESSION: No demonstrated pulmonary embolism or arterial dissection. Right lower lobe consolidation. Mild mediastinal adenopathy. Cholelithiasis. Enlarged spleen. Mild hepatic cirrhosis. Electronically Signed: Jack Chris DO at 20:28 EDT Tel [phone], Service support ,
--- NOTE | 2018-08-13 19:44 | ED.RN ---
PER DR. WOLF, HOLD ANTIBIOTICS AT THIS TIME. WILL CONTINUE TO MONITOR.
[2018-08-13 20:08] LABS: Fibrinogen 442 mg/dl (203-444)
[2018-08-13] MEDS: Ceftriaxone 1 GM/50 ML BAG IV (20:19)
--- NOTE | 2018-08-13 20:21 | ED.RN ---
PER DR. WOLF, OK TO CONTINUE AND INITIATE PREVIOUSLY ORDERED ANTIBIOTICS. PT CONTINUE TO COUGH, REQUESTING AEROSOLS. DR. WOLF INFORMED.
--- NOTE | 2018-08-13 21:15 | PCM.HP.STD ---
Problem List (1) Septic shock Status: Acute (2) Community acquired pneumonia Status: Acute (3) IBS (irritable bowel syndrome) Status: Chronic (4) ADD (attention deficit disorder) Status: Chronic (5) Asthma Status: Chronic History of Present Illness Date of Admission: 08/13/18 Chief Complaint: Fever, shortness of breath, productive cough. The patient is a 37 year old M with past medical history as mentioned above presented to the emergency room because of high-grade fever, productive cough and shortness of breath. His illness started around 4 to 5 days ago with shortness of breath, and mild to moderate exertion, aggravated by activity, minimally relieved with rest, associated with productive cough with large amount of yellow sputum as well as high-grade fever of up to 104 Fahrenheit at home. Patient mentioned that over the past 6 months, he has been having sinus infections and he received multiple rounds of antibiotics. In the emergency department, patient was febrile, tachycardic, blood pressure was elevated, pulse ox was 94% on 2 L. Routine blood work was marked for significant leukocytosis with neutrophilia, sodium of 127. His lactic acid was 5.2. LFT revealed elevated total bilirubin, AST was 116 ALT was normal as well as alkaline phosphatase. Troponin was negative. EKG reveals sinus tachycardia, no acute changes. Chest x-ray revealed questionable right base infiltrate, poor quality chest x-ray. CTA chest done for elevated d-dimer and showed no PE or dissection, revealed a right lower lobe consolidation. CT scan brain showed no acute findings. X-ray of the sinuses revealed mucosal thickening compatible with pansinusitis. Patient is being admitted for septic shock secondary to community acquired pneumonia, suspected DIC, hyponatremia and elevated LFT. Past Medical History Past Medical History (Chronic Problems): Chronic Problems (Last Reviewed 04/25/17 @ 08:41 by Anatoliy Rowell) Chronic sinusitis (Chronic) Alcohol abuse (Chronic) IBS (irritable bowel syndrome) (Chronic) ADD (attention deficit disorder) (Chronic) Asthma (Chronic) Medical History: Medical History (Last Reviewed 04/25/17 @ 08:41 by Anatoliy Rowell) ADHD F90.9 Allergies No Known Allergies Allergy (Verified 08/13/18 17:30) Home Medications: Ambulatory Orders Medication Instructions Recorded Albuterol Inhaler [Ventolin Hfa 1 - 2 puff INHALATION Q4H PRN PRN 02/18/15 (SP)] Dextroamphetamine/Amphetamine 20 mg PO BID 02/18/15 [Adderall 20 mg Tablet] Fluticasone/Salmeterol [Advair 1 puff INHALATION BID 06/02/16 250-50 Diskus] Linaclotide [Linzess] 290 mcg PO BID 08/13/18 Surgical History: Surgical History (Last Reviewed 04/25/17 @ 08:41 by Anatoliy Rowell) left tendon repair 04/12/17 S/P sinus surgery Z98.890 Surgical History: - - Ankle surgery repeat Psychiatric History: No pertinent psych hx Lives: Spouse/ Significant Other Smoking Status: Current every day smoker Tobacco Use: Cigarettes Alcohol: Heavy Drugs: None - *Family History Maternal History Items: No pertinent history Paternal History Items: No pertinent history Review of Systems Constitutional: Reports: Anorexia, Chills, Fever, Malaise, Weakness Eyes: Denies: Blurred vision, Double vision, Drainage, Redness HEENT: Reports: Head Aches. Denies: Difficulty Hearing, Ear Pain, Eye Pain, Nasal Congestion, Sore Throat Cardiovascular: Denies: Chest Pain, Chest Pressure, Chest Tightness, Heaviness, Light Headedness, Palpitations, Paroxysmal Noc. Dyspnea, Syncope Respiratory: Reports: Cough, Shortness of Breath, Shortness of breath upon exertion, Sputum production. Denies: Wheezing Gastrointestinal: Reports: Diarrhea. Denies: Abdominal Pain, Constipation, Nausea, Vomiting Genitourinary: Denies: Dysuria, Frequency, Hematuria Musculoskeletal: Denies: Arm Pain, Back Pain, Foot Pain Skin: Denies: Dryness, Rash Neurological: Reports: Headaches. Denies: Balance problems, Blurred vision, Double vision, Change in Speech, Focal weakness, Incoordination Psychiatric: Denies: Anxiety, Depression Endocrine: Denies: Change in Body Habitus, Polyuria VTE Information - Inpt Only VTE Present on Admission: No VTE Mechan Device Prophylaxis: SCD's VTE Pharm Prophylaxis ordered?: No Patient Problems: Active and Suspected Problems (Last Reviewed 04/25/17 @ 08:41 by Anatoliy Rowell) Septic shock (Acute) Community acquired pneumonia (Acute) - Physical Exam General: Alert, Oriented x3, Cooperative, - - Short of breath, tachypneic. HEENT: Atraumatic, PERRLA, EOMI, Normocephalic Oral: Moist Mucosa, No Gingival or Mucosal Lesions/ Ulcerations Neck: Supple, No JVD, Negative Carotid Bruits, Trachea Midline, Thyroid Normal Size and Texture Lungs: No wheeze, No rales, Diminished, Rhonchi, Short of Breath, Tachypneic, - - Markedly decreased breath sounds in the right base. Cardiovascular: Regular rate, Regular Rhythm, Normal S1, Normal S2, No murmurs, PMI Normal, Tachycardic Abdomen: Bowel Sounds Present, Soft, Non Tender, Non-Distended, No Hepato-splenomegaly, Obese Extremities: No clubbing, No cyanosis, No edema Skin: No rashes, No breakdown Lymphatic: No Cervical, Supraclavicular, or Inguinal Adenopathy Neurological: Cranial nerves II-XII grossly intact, Motor Exam 5/5 strength throughout Psych/Mental Status: Normal Affect, Appropriate, Alert and oriented to time, place, person, mood and affect Vital Signs Temp Pulse Resp BP Pulse Ox 99.8 F H 121 H 20 H 149/79 H 93 08/13/18 20:19 08/13/18 20:43 08/13/18 20:43 08/13/18 20:19 08/13/18 20:19 Oxygen Flow Rate (L/min) 2 Oxygen Delivery Method Nasal Cannula Weight: 247 lb 2.211 oz Body Mass Index (BMI) 36.5 Finger Stick Blood Glucose 87 Intake and Output for Last 24 Hours 08/11/18 08/12/18 08/13/18 23:59 23:59 23:59 Output Total 750 / 750 Balance -750 / -750 Laboratory Tests Past 24 Hrs 08/13/18 08/13/18 08/13/18 17:50 17:50 17:50 WBC 19.5 H RBC 4.18 L Hgb 12.6 L Hct 37.5 L MCV 89.7 MCH 30.1 MCHC 33.6 RDW 16.9 H RDW Differential 55.1 H Plt Count 95 L MPV 10.3 Immature Gran % (Auto) 1.100 H Neut % (Auto) 88.9 H Lymph % (Auto) 3.8 L [place] % (Auto) 6.0 Eos % (Auto) 0.1 Baso % (Auto) 0.1 Absolute Neuts (auto) 17.4 H Absolute Lymphs (auto) 0.74 L Total Counted Not Reportable Differential Comment SCANNED Immature Plt Fraction Retic Count Immature Retic Fraction Retic Hgb Equivalent Haptoglobin PT 21.6 H INR 1.9 APTT 41.3 H Fibrinogen D-Dimer Quant (PE/DVT) Sodium 127 L Potassium 3.5 Chloride 94 L Carbon Dioxide 20.0 L Anion Gap 13 BUN 10 Creatinine 0.96 Estim Creat Clear Calc 107.40 Est GFR (MDRD) Af Amer 114 Est GFR (MDRD) Non-Af 94 BUN/Creatinine Ratio 10.4 Glucose 111 H Lactic Acid Calcium 8.0 L Total Bilirubin 3.50 H Direct Bilirubin AST 116 H ALT 46 Alkaline Phosphatase 96 Lactate Dehydrogenase Troponin I 0.020 Total Protein 8.1 Albumin 3.2 Globulin 4.9 H Albumin/Globulin Ratio 0.7 L Urine Color Urine Clarity Urine pH Ur Specific [place] Urine Protein Urine Glucose (UA) Urine Ketones Urine Occult Blood Urine Nitrite Urine Bilirubin Urine Urobilinogen Ur Leukocyte Esterase Urine RBC Urine WBC Ur Squamous Epith Cells Urine Bacteria Urine Mucus 08/13/18 08/13/18 08/13/18 17:50 17:50 17:50 WBC RBC Hgb Hct MCV MCH MCHC RDW RDW Differential Plt Count MPV Immature Gran % (Auto) Neut % (Auto) Lymph % (Auto) [place] % (Auto) Eos % (Auto) Baso % (Auto) Absolute Neuts (auto) Absolute Lymphs (auto) Total Counted Differential Comment Immature Plt Fraction 7.9 Retic Count 1.80 H Immature Retic Fraction 18.00 H Retic Hgb Equivalent 33.9 Haptoglobin PT INR APTT Fibrinogen D-Dimer Quant (PE/DVT) Sodium Potassium Chloride Carbon Dioxide Anion Gap BUN Creatinine Estim Creat Clear Calc Est GFR (MDRD) Af Amer Est GFR (MDRD) Non-Af BUN/Creatinine Ratio Glucose Lactic Acid 5.2 H* Calcium Total Bilirubin Direct Bilirubin 1.75 H AST ALT Alkaline Phosphatase Lactate Dehydrogenase Troponin I Total Protein Albumin Globulin Albumin/Globulin Ratio Urine Color Urine Clarity Urine pH Ur Specific [place] Urine Protein Urine Glucose (UA) Urine Ketones Urine Occult Blood Urine Nitrite Urine Bilirubin Urine Urobilinogen Ur Leukocyte Esterase Urine RBC Urine WBC Ur Squamous Epith Cells Urine Bacteria Urine Mucus 08/13/18 08/13/18 08/13/18 17:50 17:50 19:00 WBC RBC Hgb Hct MCV MCH MCHC RDW RDW Differential Plt Count MPV Immature Gran % (Auto) Neut % (Auto) Lymph % (Auto) [place] % (Auto) Eos % (Auto) Baso % (Auto) Absolute Neuts (auto) Absolute Lymphs (auto) Total Counted Differential Comment Immature Plt Fraction Retic Count Immature Retic Fraction Retic Hgb Equivalent Haptoglobin PT INR APTT Fibrinogen 442 D-Dimer Quant (PE/DVT) 2.18 H* Sodium Potassium Chloride Carbon Dioxide Anion Gap BUN Creatinine Estim Creat Clear Calc Est GFR (MDRD) Af Amer Est GFR (MDRD) Non-Af BUN/Creatinine Ratio Glucose Lactic Acid Calcium Total Bilirubin Direct Bilirubin AST ALT Alkaline Phosphatase Lactate Dehydrogenase 290 H Troponin I Total Protein Albumin Globulin Albumin/Globulin Ratio Urine Color [place] Urine Clarity Clear Urine pH 5.0 Ur Specific [place] 1.015 Urine Protein 30 H Urine Glucose (UA) Normal Urine Ketones 15 H Urine Occult Blood 10 H Urine Nitrite Negative Urine Bilirubin 3 H Urine Urobilinogen 4 H Ur Leukocyte Esterase 25 H Urine RBC 0-5 SEEN Urine WBC 0-5 SEEN Ur Squamous Epith Cells 0-5 SEEN Urine Bacteria 1+ Urine Mucus 2+ 08/13/18 19:20 WBC RBC Hgb Hct MCV MCH MCHC RDW RDW Differential Plt Count MPV Immature Gran % (Auto) Neut % (Auto) Lymph % (Auto) [place] % (Auto) Eos % (Auto) Baso % (Auto) Absolute Neuts (auto) Absolute Lymphs (auto) Total Counted Differential Comment Immature Plt Fraction Retic Count Immature Retic Fraction Retic Hgb Equivalent Haptoglobin Pending PT INR APTT Fibrinogen D-Dimer Quant (PE/DVT) Sodium Potassium Chloride Carbon Dioxide Anion Gap BUN Creatinine Estim Creat Clear Calc Est GFR (MDRD) Af Amer Est GFR (MDRD) Non-Af BUN/Creatinine Ratio Glucose Lactic Acid Calcium Total Bilirubin Direct Bilirubin AST ALT Alkaline Phosphatase Lactate Dehydrogenase Troponin I Total Protein Albumin Globulin Albumin/Globulin Ratio Urine Color Urine Clarity Urine pH Ur Specific [place] Urine Protein Urine Glucose (UA) Urine Ketones Urine Occult Blood Urine Nitrite Urine Bilirubin Urine Urobilinogen Ur Leukocyte Esterase Urine RBC Urine WBC Ur Squamous Epith Cells Urine Bacteria Urine Mucus Clinical Impression(s) from Imaging Studies Chest X-Ray 08/13/18 19:04 IMPRESSION: Mild basilar scarring/atelectasis. Electronically Signed: Jack Chris DO at 19:23 EDT Tel [phone], Service support , ADDENDUM: 08/13/182036 Brain CT 08/13/18 19:38 IMPRESSION: Normal unenhanced CT scan of the brain. Paranasal sinus disease. Electronically Signed: Jack Chris DO at 20:18 EDT Tel [phone], Service support , Chest CTA 08/13/18 19:38 IMPRESSION: No demonstrated pulmonary embolism or arterial dissection. Right lower lobe consolidation. Mild mediastinal adenopathy. Cholelithiasis. Enlarged spleen. Mild hepatic cirrhosis. Electronically Signed: Jack Chris DO at 20:28 EDT Tel [phone], Service support , Facial/Sinus 08/13/18 19:38 IMPRESSION: Mucosal thickening of the visualized paranasal sinuses compatible with pansinusitis. Electronically Signed: Jack Chris DO at 20:20 EDT Tel [phone], Service support , Assessment/Plan All Active Problems (Last Reviewed 04/25/17 @ 08:41 by Anatoliy Rowell) Septic shock (Acute) Community acquired pneumonia (Acute) This is a 37 years old male patient presented to the emergency room because of fever, shortness of breath and productive cough, found to have right lower lobe consolidation consistent with community-acquired pneumonia complicated by septic shock, found to have suspected DIC, elevated LFTs as well as hyponatremia. #1 septic shock: Lactic acid is 5.2, patient is febrile, tachycardic, has significant leukocytosis with consolidation on chest x-ray. Also, he has chronic sinusitis and x-ray of the sinuses revealed mucosal thickening consistent with pansinusitis. Patient received 3.5 L of fluid in the ED. Repeat lactic acid went up to 5.9. Another liter of IV fluid bolus ordered. Plan: Admit to ICU, critical care monitoring, keep on clear liquids, maintenance IV fluid with normal saline at 150 cc/h after finishing another liter of IV fluid bolus, blood culture, urine culture, pneumococcal and Legionella antigen, stool for C. difficile, stool for enteric pathogens, start IV Levaquin and Zosyn, repeat CBC and CMP tomorrow morning, critical care consult, PT OT evaluation and treatment. #2 right lower lobe community acquired pneumonia: Chest x-ray as well as CTA chest reviewed as above. Plan: Blood and urine cultures, sputum culture, pneumococcal and Legionella antigen, IV Levaquin and Zosyn, albuterol as needed, IV fluids as above. #3 suspected DIC: Secondary to #1. Patient does have thrombocytopenia, pro time and INR are elevated as well as PTT and d-dimer, fibrinogen is normal. At this time, no active bleeding. Hemoglobin and hematocrit are stable. Plan: Start IV antibiotics as above, repeat CBC, pro time and INR tomorrow morning. If patient started bleeding, we will need to give fresh frozen plasma and platelet concentrate. #4 hyponatremia: This is likely because of hypovolemic hyponatremia secondary to septic shock. Kidney function is normal. Plan: IV fluids with normal saline as above, repeat CMP tomorrow morning. #5 elevated LFT: Both total and bad bilirubin are elevated. AST is 116, AST and alkaline phosphatase were normal. Patient denied any right upper quadrant abdominal pain. Plan: Ultrasound gallbladder, repeat lactic in the morning. #6 ADD: Hold Adderall. #7 asthma: Clinically stable, pulse ox is maintained on 2 L of oxygen. Plan for albuterol as needed, DuoNeb every 6 hours. #8 alcohol abuse: Folic acid, thiamine, CIWA protocol. #9 chronic sinusitis: With past history of surgeries. X-ray of the sinuses reviewed as above. Patient will be on IV Levaquin and Zosyn. #10 DVT prophylaxis: SCDs. This note was generated with [employer] dictation software. It may contain incorrect words, spelling, and punctuation that were not noted in checking the note before signing. Code Visit Inpatient E&M: 99371 Init Hosp L3
[2018-08-13 22:10] LABS: Reflex Lactate? Y
[2018-08-13 22:44] LABS: Lactic Acid 5.9 mmol/L (0.4-2.0)
--- NOTE | 2018-08-13 22:45 | ED.RN ---
lab called with critical lab results. lactic acid 5.9. scott rn with icu made aware
[2018-08-13] MEDS: levoFLOXacin IV 750 MG/150 ML BAG 100 MG IV (22:55)
[2018-08-13] MEDS: 0.9% NaCl IVPB Med Flush (250 mL) 15 ML IV (22:59)
[2018-08-13] MEDS: 0.9% NaCl Peripheral Flush Adult/Peds IV (23:01)
[2018-08-13] MEDS: Acetaminophen 325 MG Tablet 650 MG PO (23:36)
[2018-08-14] VITALS (33 sets, daily range): BP systolic 123–174; BP diastolic 70–92; PULSE 93–127; RESP 16–26; TEMP 36.8–37.6; O2SAT 93–96
[2018-08-14] MEDS: 0.9% Normal Saline 1,000 ML 150 ML IV ×3 (00:13→13:37)
--- NOTE | 2018-08-14 00:16 | US_ITS ---
STUDY: ABDOMINAL ULTRASOUND - RIGHT UPPER QUADRANT REASON FOR VISIT: Male, 37 years old. TECHNIQUE: Ultrasound evaluation of the right upper quadrant was performed with real-time and static win-scale imaging. TECHNICAL QUALITY: Adequate. COMPARISON: None. FINDINGS: Liver: The liver is enlarged measures 24.1 cm with heterogeneous fatty echogenicity no obvious focal lesion noted. The gallbladder is 6.1cm in length. No obvious stone formation or sludge, the wall measures 4.9 mm. No dilatation of the extra or intrahepatic biliary system the common bile duct measures 3.2 mm in diameter minimal inferior free fluid below the right lobe of the liver The right kidney measures 14 x 8 x 5.1 cm with the renal cortex 1 cm. No hydronephrosis or stone formation. US/Gallbladder IMPRESSION: Moderate hepatomegaly with fatty infiltration of the liver Electronically Signed: Severino Zhang, at 13:07 EDT Tel , Service support ,
[2018-08-14 01:34] LABS: Lactic Acid 6.7 mmol/L (0.4-2.0)
[2018-08-14] MEDS: Albuterol 2.5 MG/3 ML VIAL.NEB. INHALATION (05:00)
[2018-08-14 05:02] LABS: Reflex Lactate? Y
[2018-08-14 05:13] LABS: Mean Corp Hgb Conc 32.4 g/gl (32-36); Mean Corpuscular Hgb 29.2 pg (27.0-32.0); Mean Platelet Vol. 10.7 fl (6.2-12.0); Platelet Count 88 K/mm3 (150-450); RBC Distribution Width CV 17.2 % (11.6-14.6); RBC Distribution Width SD 55.1 fl (35.1-43.9); Red Blood Count 4.11 M/mm3 (4.6-6.2); White Blood Count 16.6 K/mm3 (4.4-11.0)
[2018-08-14 05:20] LABS: International Normalized Ratio 2.2; Prothrombin Time (Protime)PT. 24.5 SECONDS (11.7-14.9)
[2018-08-14 05:28] LABS: Differential Indicated MANUAL DIFF; POSITIVE COUNT YES; POSITIVE DIFFERENTIAL YES; POSITIVE MORPHOLOGY YES
[2018-08-14 05:31] LABS: ALB/GLOB Ratio 0.6 RATIO (0.9-2.4); AST(SGOT) 91 U/L (15-37); Alanine Aminotransfer ALT/SGPT 41 U/L (16-61); Albumin, Serum 2.7 g/dL (3.2-5.0); Alkaline Phosphatase 64 U/L (45-117); Anion Gap 14 (5-15); BUN 11 mg/dL (7-18); BUN/Creat Ratio 12.3 RATIO (10-20); Calcium,Total 7.1 mg/dL (8.5-10.1); Chloride 101 mmol/L (98-107); EST Glomerular Filtration Rate 102 mL/min (>60); Est Glom Filt Rate - Afr Amer 124 mL/min (>60); Estimated Creatinine Clearance 114.56 ml/min; Globulin 4.2 g/dL (2.2-4.2); Glucose 107 mg/dL (74-106); Potassium 3.7 mmol/L (3.5-5.1); Protein, Total 6.9 g/dL (6.4-8.2); Sodium Level 135 mmol/L (136-145)
[2018-08-14] MEDS: Acetaminophen 325 MG Tablet 650 MG PO ×3 (05:39→18:09)
[2018-08-14 05:55] LABS: Lymphocyte 2 % (19-41); Lymphocyte # 0.33 X10^3/ul (4.0); Monocyte 4 % (0-10); Neutrophil-Band 25 % (0-5); Neutrophil-Segmented 69 % (47-70); Platelet Estimate SLT DEC (ADEQ); Red Cell Morphology NORM C+C NORMAL (NORM C&C); Total Cells Counted 100 (MANUAL DIFF); Toxic Granulation 1+
[2018-08-14 05:56] LABS: Absolute Lymphocyte Count 0.33 X10^3/ul (0.83-4.51); Absolute Neutrophil Count 15.6 X10^3/uL (2.0-7.7)
[2018-08-14] MEDS: Phytonadione (Vit K) 10 MG/ML Ampul PO (06:23)
[2018-08-14] MEDS: Ipratropium/Albuterol Sulfate 3 ML AMPUL.NEB INHALATION ×3 (06:33→19:09)
--- NOTE | 2018-08-14 07:28 | CON.PCM_ITS ---
Problem List (1) Chronic sinusitis Status: Acute Qualifiers: Sinusitis location: pansinusitis Qualified Code(s): J32.4 - Chronic pansinusitis (2) Alcohol abuse Status: Chronic (3) Community acquired pneumonia Status: Acute (4) IBS (irritable bowel syndrome) Status: Chronic (5) ADD (attention deficit disorder) Status: Chronic (6) Asthma Status: Chronic Reason for Consult Date of Consultation: 08/14/18 Reason for Consultation: Severe sepsis History of Present Illness: The patient is a 37 year old M, with past medical history listed below, who presented to [facility] on 08/13/2018 secondary to fever and shortness of breath. Patient states that he spent dealing with a sinus infection for the last 6 months and has been on multiple rounds of antibiotics. Patient did see an ENT and they reportedly took a specimen for culture. Patient states that he had fever as high as 104 to 105 ?F, some shortness of breath and cough. Patient has noted generalized myalgias. Patient reportedly does have a history of being an asthmatic, but has been compliant with Advair therapy and states that he is been well controlled to this point. On presentation to the ER, patient was noted to have a temperature of 103.2 ?F, tachycardic at 144 bpm and tachypneic at 27 breaths/min. Patient did require 2 L nasal cannula to maintain a saturation of 90%, but blood Pressure was elevated 153/68. Patient did have some slight hemoptysis and laboratory work-up showed a leukocytosis of 19.5, sodium of 127, total bilirubin of 3.5, INR of 1.9, d-dimer of 2.18 and lactate of 5.2. Patient's fibrinogen was normal at 442. CT scan of the head and chest were significant for pansinusitis and a right lower lobe consolidation. Patient was placed on Tylenol, aerosols, IV fluids, Rocephin and azithromycin. There was some concern for DIC, so patient was admitted to the intensive care unit for further monitoring. Since being in the intensive care unit, patient has had persistent fever, tachycardia and requires 3 L nasal cannula to maintain saturations. Patient overall feels he is subjectively improved compared to previous. Patient does have minor hemoptysis noted with his coughing. Patient does feel that his breathing is slightly improved compared to previous. Patient is denying any chest pain at this time. Patient does readily admit to drinking and states that he drinks 2-3 bottles of liquor a week. Patient's reportedly told nursing that he drinks a pint of liquor a day. Patient reportedly is never had issues with alcohol cessation in the past. Patient denies any trauma. No melena, hematochezia, epistaxis or excessive bruising has been reported in the past. Review of systems otherwise negative x10 systems. Past Medical History Past Medical History (Chronic Problems): Chronic Problems (Last Reviewed 04/25/17 @ 08:41 by Anatoliy Rowell) Alcohol abuse (Chronic) IBS (irritable bowel syndrome) (Chronic) ADD (attention deficit disorder) (Chronic) Asthma (Chronic) Medical History: Medical History (Last Reviewed 04/25/17 @ 08:41 by Anatoliy Rowell) ADHD F90.9 Allergies No Known Allergies Allergy (Verified 08/13/18 17:30) Home Medications: Ambulatory Orders Medication Instructions Recorded Albuterol Inhaler [Ventolin Hfa 1 - 2 puff INHALATION Q4H PRN PRN 02/18/15 (SP)] Dextroamphetamine/Amphetamine 20 mg PO BID 02/18/15 [Adderall 20 mg Tablet] Fluticasone/Salmeterol [Advair 1 puff INHALATION BID 06/02/16 250-50 Diskus] Linaclotide [Linzess] 290 mcg PO BID 08/13/18 Surgical History: Surgical History (Last Reviewed 04/25/17 @ 08:41 by Anatoliy Rowell) left tendon repair 04/12/17 S/P sinus surgery Z98.890 Surgical History: - - Ankle surgery repeat Psychiatric History: No pertinent psych hx Lives: Spouse/ Significant Other Smoking Status: Current every day smoker Tobacco Use: Cigarettes Alcohol: Heavy Drugs: None - *Family History Maternal History Items: No pertinent history Paternal History Items: No pertinent history Review of Systems Comment: See HPI Patient Problems: Active and Suspected Problems (Last Reviewed 04/25/17 @ 08:41 by Anatoliy Rowell) Chronic sinusitis (Acute) Septic shock (Acute) Community acquired pneumonia (Acute) Objective: All imaging was personally reviewed. CT scan of the head does show pansinusitis and I agree with the right lower lobe infiltrate assessment on CTA. Patient did not have extensive emphysematous changes noted. Patient does not have a previous echocardiogram or pulmonary function test in the system to review. - Physical Exam General: Alert, Oriented x3, Cooperative, Well developed, Well nourished, - - Obese. Mild conversational dyspnea. Appears older than stated age. HEENT: Atraumatic, PERRLA, EOMI, Normocephalic, - - Slight scleral injection without icterus Oral: No Gingival or Mucosal Lesions/ Ulcerations, Dry Mucosa Neck: Supple, No JVD, No Nodes, Trachea Midline Lungs: No rales, Diminished, Rhonchi - Right base, Wheezes Cardiovascular: Normal S1, Normal S2, No murmurs, No rub noted, No Gallop, Tachycardic Abdomen: Bowel Sounds Present, Soft, Non Tender, Non-Distended, Obese, - - No fluid wave appreciated. Extremities: No clubbing, No cyanosis, No edema, Capillary Refill Less than 3 Seconds Skin: No rashes, No breakdown, - - No petechiae or excessive bruising appreciated. No telangiectasias noted. Musculoskeletal: No Tenderness to Palpation of Joints or Extremities Lymphatic: Cervical Adenopathy Neurological: Cranial nerves II-XII grossly intact, Neuro grossly intact, Motor Exam 5/5 strength throughout Psych/Mental Status: Alert and oriented to time, place, person, mood and affect Vital Signs Temp Pulse Resp BP Pulse Ox 37.3 C 122 H 18 147/81 H 96 08/14/18 05:00 08/14/18 06:34 08/14/18 06:34 08/14/18 06:00 08/14/18 06:34 Oxygen Flow Rate (L/min) 3 Oxygen Delivery Method Nasal Cannula Weight: 116.7 kg Body Mass Index (BMI) 37.6 Finger Stick Blood Glucose 87 Intake and Output for Last 24 Hours 08/12/18 08/13/18 08/14/18 23:59 23:59 23:59 Intake Total 714.4 / 714.4 1649 / 1649 Output Total 1200 / 1200 625 / 625 Balance -485.6 / -485.6 1024 / 1024 Microbiology Past 72 Hours 08/14/18 02:35 Enteric Bacteriology - Final Stool 08/14/18 02:35 C. difficile DNA Amplification - Final Stool 08/13/18 19:00 Streptococcus pneumoniae Antigen (M - Final Urine, Clean Catch 06/26/19 19:00 Legionella Antigen - Final Urine, Clean Catch Laboratory Tests Past 24 Hrs 08/13/18 08/13/18 08/13/18 17:50 17:50 17:50 WBC 19.5 H RBC 4.18 L Hgb 12.6 L Hct 37.5 L MCV 89.7 MCH 30.1 MCHC 33.6 RDW 16.9 H RDW Differential 55.1 H Plt Count 95 L MPV 10.3 Immature Gran % (Auto) 1.100 H Neut % (Auto) 88.9 H Lymph % (Auto) 3.8 L Alcorn % (Auto) 6.0 Eos % (Auto) 0.1 Baso % (Auto) 0.1 Absolute Neuts (auto) 17.4 H Absolute Lymphs (auto) 0.74 L Total Counted Not Reportable Neutrophils % (Manual) Band Neutrophils % Lymphocytes % (Manual) Monocytes % (Manual) Differential Comment SCANNED Diff Path Review Toxic Granulation Platelet Estimate Immature Plt Fraction RBC Morphology Retic Count Immature Retic Fraction Retic Hgb Equivalent Haptoglobin PT 21.6 H INR 1.9 APTT 41.3 H Fibrinogen D-Dimer Quant (PE/DVT) Sodium 127 L Potassium 3.5 Chloride 94 L Carbon Dioxide 20.0 L Anion Gap 13 BUN 10 Creatinine 0.96 Estim Creat Clear Calc 107.40 Est GFR (MDRD) Af Amer 114 Est GFR (MDRD) Non-Af 94 BUN/Creatinine Ratio 10.4 Glucose 111 H Lactic Acid Calcium 8.0 L Total Bilirubin 3.50 H Direct Bilirubin AST 116 H ALT 46 Alkaline Phosphatase 96 Lactate Dehydrogenase Troponin I 0.020 Total Protein 8.1 Albumin 3.2 Globulin 4.9 H Albumin/Globulin Ratio 0.7 L Urine Color Urine Clarity Urine pH Ur Specific Oil Trough Urine Protein Urine Glucose (UA) Urine Ketones Urine Occult Blood Urine Nitrite Urine Bilirubin Urine Urobilinogen Ur Leukocyte Esterase Urine RBC Urine WBC Ur Squamous Epith Cells Urine Bacteria Urine Mucus 08/13/18 08/13/18 08/13/18 17:50 17:50 17:50 WBC RBC Hgb Hct MCV MCH MCHC RDW RDW Differential Plt Count MPV Immature Gran % (Auto) Neut % (Auto) Lymph % (Auto) Alcorn % (Auto) Eos % (Auto) Baso % (Auto) Absolute Neuts (auto) Absolute Lymphs (auto) Total Counted Neutrophils % (Manual) Band Neutrophils % Lymphocytes % (Manual) Monocytes % (Manual) Differential Comment Diff Path Review Toxic Granulation Platelet Estimate Immature Plt Fraction 7.9 RBC Morphology Retic Count 1.80 H Immature Retic Fraction 18.00 H Retic Hgb Equivalent 33.9 Haptoglobin PT INR APTT Fibrinogen D-Dimer Quant (PE/DVT) Sodium Potassium Chloride Carbon Dioxide Anion Gap BUN Creatinine Estim Creat Clear Calc Est GFR (MDRD) Af Amer Est GFR (MDRD) Non-Af BUN/Creatinine Ratio Glucose Lactic Acid 5.2 H* Calcium Total Bilirubin Direct Bilirubin 1.75 H AST ALT Alkaline Phosphatase Lactate Dehydrogenase Troponin I Total Protein Albumin Globulin Albumin/Globulin Ratio Urine Color Urine Clarity Urine pH Ur Specific Oil Trough Urine Protein Urine Glucose (UA) Urine Ketones Urine Occult Blood Urine Nitrite Urine Bilirubin Urine Urobilinogen Ur Leukocyte Esterase Urine RBC Urine WBC Ur Squamous Epith Cells Urine Bacteria Urine Mucus 08/13/18 08/13/18 08/13/18 17:50 17:50 19:00 WBC RBC Hgb Hct MCV MCH MCHC RDW RDW Differential Plt Count MPV Immature Gran % (Auto) Neut % (Auto) Lymph % (Auto) Alcorn % (Auto) Eos % (Auto) Baso % (Auto) Absolute Neuts (auto) Absolute Lymphs (auto) Total Counted Neutrophils % (Manual) Band Neutrophils % Lymphocytes % (Manual) Monocytes % (Manual) Differential Comment Diff Path Review Toxic Granulation Platelet Estimate Immature Plt Fraction RBC Morphology Retic Count Immature Retic Fraction Retic Hgb Equivalent Haptoglobin PT INR APTT Fibrinogen 442 D-Dimer Quant (PE/DVT) 2.18 H* Sodium Potassium Chloride Carbon Dioxide Anion Gap BUN Creatinine Estim Creat Clear Calc Est GFR (MDRD) Af Amer Est GFR (MDRD) Non-Af BUN/Creatinine Ratio Glucose Lactic Acid Calcium Total Bilirubin Direct Bilirubin AST ALT Alkaline Phosphatase Lactate Dehydrogenase 290 H Troponin I Total Protein Albumin Globulin Albumin/Globulin Ratio Urine Color Ciarra Urine Clarity Clear Urine pH 5.0 Ur Specific Oil Trough 1.015 Urine Protein 30 H Urine Glucose (UA) Normal Urine Ketones 15 H Urine Occult Blood 10 H Urine Nitrite Negative Urine Bilirubin 3 H Urine Urobilinogen 4 H Ur Leukocyte Esterase 25 H Urine RBC 0-5 SEEN Urine WBC 0-5 SEEN Ur Squamous Epith Cells 0-5 SEEN Urine Bacteria 1+ Urine Mucus 2+ 08/13/18 08/13/18 08/14/18 19:20 21:28 00:55 WBC RBC Hgb Hct MCV MCH MCHC RDW RDW Differential Plt Count MPV Immature Gran % (Auto) Neut % (Auto) Lymph % (Auto) Alcorn % (Auto) Eos % (Auto) Baso % (Auto) Absolute Neuts (auto) Absolute Lymphs (auto) Total Counted Neutrophils % (Manual) Band Neutrophils % Lymphocytes % (Manual) Monocytes % (Manual) Differential Comment Diff Path Review Toxic Granulation Platelet Estimate Immature Plt Fraction RBC Morphology Retic Count Immature Retic Fraction Retic Hgb Equivalent Haptoglobin Pending PT INR APTT Fibrinogen D-Dimer Quant (PE/DVT) Sodium Potassium Chloride Carbon Dioxide Anion Gap BUN Creatinine Estim Creat Clear Calc Est GFR (MDRD) Af Amer Est GFR (MDRD) Non-Af BUN/Creatinine Ratio Glucose Lactic Acid 5.9 H* 6.7 H* Calcium Total Bilirubin Direct Bilirubin AST ALT Alkaline Phosphatase Lactate Dehydrogenase Troponin I Total Protein Albumin Globulin Albumin/Globulin Ratio Urine Color Urine Clarity Urine pH Ur Specific Oil Trough Urine Protein Urine Glucose (UA) Urine Ketones Urine Occult Blood Urine Nitrite Urine Bilirubin Urine Urobilinogen Ur Leukocyte Esterase Urine RBC Urine WBC Ur Squamous Epith Cells Urine Bacteria Urine Mucus 08/14/18 08/14/18 08/14/18 05:00 05:00 05:00 WBC 16.6 H RBC 4.11 L Hgb 12.0 L Hct 37.0 L MCV 90.0 MCH 29.2 MCHC 32.4 RDW 17.2 H RDW Differential 55.1 H Plt Count 88 L MPV 10.7 Immature Gran % (Auto) Neut % (Auto) Not Reportable Lymph % (Auto) Alcorn % (Auto) Eos % (Auto) Baso % (Auto) Absolute Neuts (auto) 15.6 H Absolute Lymphs (auto) 0.33 L Total Counted 100 Neutrophils % (Manual) 69 Band Neutrophils % 25 H Lymphocytes % (Manual) 2 L Monocytes % (Manual) 4 Differential Comment Diff Path Review May foll Toxic Granulation 1+ Platelet Estimate SLT DEC Immature Plt Fraction RBC Morphology NORM C+C Retic Count Immature Retic Fraction Retic Hgb Equivalent Haptoglobin PT 24.5 H INR 2.2 APTT Fibrinogen D-Dimer Quant (PE/DVT) Sodium 135 L Potassium 3.7 Chloride 101 Carbon Dioxide 20.0 L Anion Gap 14 BUN 11 Creatinine 0.90 Estim Creat Clear Calc 114.56 Est GFR (MDRD) Af Amer 124 Est GFR (MDRD) Non-Af 102 BUN/Creatinine Ratio 12.3 Glucose 107 H Lactic Acid Calcium 7.1 L Total Bilirubin 2.80 H Direct Bilirubin AST 91 H ALT 41 Alkaline Phosphatase 64 Lactate Dehydrogenase Troponin I Total Protein 6.9 Albumin 2.7 L Globulin 4.2 Albumin/Globulin Ratio 0.6 L Urine Color Urine Clarity Urine pH Ur Specific Oil Trough Urine Protein Urine Glucose (UA) Urine Ketones Urine Occult Blood Urine Nitrite Urine Bilirubin Urine Urobilinogen Ur Leukocyte Esterase Urine RBC Urine WBC Ur Squamous Epith Cells Urine Bacteria Urine Mucus Clinical Impression(s) from Imaging Studies Chest X-Ray 08/13/18 19:04 IMPRESSION: Mild basilar scarring/atelectasis. Electronically Signed: Jack Chris DO at 19:23 EDT Tel [phone], Service support , ADDENDUM: 08/13/182036 Brain CT 08/13/18 19:38 IMPRESSION: Normal unenhanced CT scan of the brain. Paranasal sinus disease. Electronically Signed: Jack Chris DO at 20:18 EDT Tel [phone], Service support , Chest CTA 08/13/18 19:38 IMPRESSION: No demonstrated pulmonary embolism or arterial dissection. Right lower lobe consolidation. Mild mediastinal adenopathy. Cholelithiasis. Enlarged spleen. Mild hepatic cirrhosis. Electronically Signed: Jack Chris DO at 20:28 EDT Tel [phone], Service support , Facial/Sinus 08/13/18 19:38 IMPRESSION: Mucosal thickening of the visualized paranasal sinuses compatible with pansinusitis. Electronically Signed: Jack Chris DO at 20:20 EDT Tel [phone], Service support , Assessment/Plan Active and Suspected Problems (Last Reviewed 04/25/17 @ 08:41 by Anatoliy Rowell) Chronic sinusitis (Acute) Septic shock (Acute) Community acquired pneumonia (Acute) RECOMMENDATIONS: 1. Consider infectious disease consultation 2. Administer p.o. vitamin K 3. Initiation of p.o. prednisone 4. Monitor for signs and symptoms of withdrawal 5. Wean oxygen as tolerated IMPRESSIONS: 1. Severe sepsis secondary to right lower lobe pneumonia and pansinusitis Patient reportedly has been treated with multiple rounds of antibiotics as an outpatient. Patient is currently on community-acquired antibiotic therapy. Patient is spiking high fevers, but elevated lactate is likely secondary to hypoxia on presentation. May consider an infectious disease consult for antibiotic guidance this patient may need broader spectrum. Patient reportedly has a culture pending. 2. Coagulopathy/potential DIC Patient does have severe sepsis, so a concern for DIC is appropriate. Fibrinogen is within normal levels at this time. Another differential would include cirrhosis secondary to excessive alcohol intake. Patient is not very clear on his history at this time. Patient will be given p.o. vitamin K to see if there is a deficiency leading to coagulopathy. Patient does have some cirrhotic changes noted on CT scan of the abdomen. 3. Asthma exacerbation secondary to pneumonia Patient with rhonchi and wheezing noted on physical exam. Patient is typically treated with Advair as an outpatient. Will initiate p.o. prednisone for 5 days. Continue with aerosol therapy. Aggressive pulmonary toileting and wean oxygen as tolerated. 4. Suspected alcohol abuse Patient minimizes alcohol intake. Patient's reportedly reporting much more intake. Patient has not had any reported issues with cessation previously, but does have some early findings of cirrhosis on CT scan. We will continue to monitor. May need to initiate CIWA protocol. 5. Hyponatremia Some concern for hypovolemic hyponatremia on presentation. Patient has responded well to IV fluids. Patient may have an issue with alcohol abuse and cirrhosis also. Continue to monitor closely. 6. History of chronic sinusitis/ADD/obesity Complicates care, management, recovery and prognosis. Okay to hold baseline Adderall from my perspective Code Visit Inpatient E&M: [id number] Init Hosp L3
[2018-08-14 10:44] LABS: Pathologist Review Reviewed
[2018-08-14] MEDS: chlordiazePOXIDE 25 MG Capsule PO ×2 (11:57→21:10)
[2018-08-14] MEDS: predniSONE 20 MG Tablet 40 MG PO (11:57)
[2018-08-14] MEDS: guaiFENesin 1,200 MG Tablet 1200 MG PO ×2 (11:57→21:09)
[2018-08-14] MEDS: Folic Acid 1 MG Tablet PO ×2 (11:58→16:23)
[2018-08-14] MEDS: Thiamine Hydrochloride 100 MG Tablet PO (11:58)
--- NOTE | 2018-08-14 12:39 | CASEMGMT ---
RN CM Assessment Presentation: Septic Shock, CAP, IBS Intro role of CM and purpose of RN CM assessment to patient and reported , Claudia Tao.. Demographics, PCP and Pharmacy verified. Pt states he was independent prior to admission. Has had surgery on L leg in past and had DME for this, now needs L ankle surgery by Dr. Ryan in future. Denies needs for discharge. Plans to return home with family support. -RN CM inquired re: ETOH use. Pt admits he does use daily ETOH. Inquired if pt had concerns re: ETOH use. Pt did state he had a counselor in the past and plans to return to speak with them re: use. RN CM let pt know SW is available to speak with him and provide resources. Pt/ declined at this time. Will let nurse know if he reconsiders. MARCOS Brooks updated. PCP: Dr. Srinivasan Specialists: Dr. Ryan Preferred Pharmacy: [facility] Insurance: MMO Prescription Benefit: yes LNOK: Claudia Tao Living Arrangements: Lives in one story home with Claudia Tao. @ steps into home. Pt states is independent in ADL's and denies care needs. Transportation: Drives or family can drive. DME: cane, walker, crutches- states is not using. Denies oxygen/cpap use @ home. HHC: none Patient DC goals: Home DC PLAN: Home with family support. Pt plans to speak with his counselor re: ETOH us on dc.
--- NOTE | 2018-08-14 16:24 | PN_ITS ---
Patient Problems: Active and Suspected Problems (Last Reviewed 04/25/17 @ 08:41 by Anatoliy Rowell) Chronic sinusitis (Acute) Septic shock (Acute) Community acquired pneumonia (Acute) Subjective: Patient was seen and examined today in the ICU, I talked briefly with pulmonary medicine about his care. Patient is currently on 3 L/min nasal cannula oxygen. Ultrasound of the gallbladder was done today did not show any evidence of cholecystitis or gallstones. Patient's T-max today was 99.6. Patient has no complaints of any shortness of breath or chills today - Physical Exam General: Alert, Oriented x3, Cooperative, No apparent distress, Well developed HEENT: Atraumatic, PERRLA, EOMI, Normocephalic Oral: Moist Mucosa Neck: Supple, Trachea Midline, Thyroid Normal Size and Texture Lungs: Normal air movement, Diminished, Rhonchi - Scattered expiratory rhonchi were noted over the right lower lung field Cardiovascular: Regular rate, Regular Rhythm, Normal S1, Normal S2, No murmurs, No Ectopic Activity, PMI Normal, No rub noted Abdomen: Bowel Sounds Present, Soft, Non Tender, Non-Distended Extremities: No clubbing, No cyanosis, No edema, Capillary Refill Less than 3 Seconds Skin: No rashes, No breakdown Musculoskeletal: No Tenderness to Palpation of Joints or Extremities Neurological: Cranial nerves II-XII grossly intact, Neuro grossly intact, Sensory exam intact to light touch and pain, Coordination normal Psych/Mental Status: Normal Affect, Appropriate, Alert and oriented to time, place, person, mood and affect Vital Signs Temp Pulse Resp BP Pulse Ox 98.5 F 117 H 25 H 160/79 H 93 08/14/18 13:00 08/14/18 15:00 08/14/18 15:00 08/14/18 15:00 08/14/18 15:00 Oxygen Flow Rate (L/min) 3 Oxygen Delivery Method Nasal Cannula Weight: 116.7 kg Body Mass Index (BMI) 37.6 Finger Stick Blood Glucose 87 Intake and Output for Last 24 Hours 08/12/18 08/13/18 08/14/18 23:59 23:59 23:59 Intake Total 714.4 / 714.4 3806 / 3806 Output Total 1200 / 1200 1325 / 1325 Balance -485.6 / -485.6 2481 / 2481 Microbiology Past 72 Hours 08/13/18 18:48 Gram Stain - Final Sputum, Expectorated/Coughed Respiratory Culture - Preliminary Beta hemolytic organism 08/14/18 02:35 Enteric Bacteriology - Final Stool 08/14/18 02:35 C. difficile DNA Amplification - Final Stool 08/13/18 19:00 Streptococcus pneumoniae Antigen (M - Final Urine, Clean Catch 08/13/18 19:00 Legionella Antigen - Final Urine, Clean Catch Laboratory Tests Past 24 Hrs 08/13/18 08/13/18 08/13/18 17:50 17:50 17:50 WBC 19.5 H RBC 4.18 L Hgb 12.6 L Hct 37.5 L MCV 89.7 MCH 30.1 MCHC 33.6 RDW 16.9 H RDW Differential 55.1 H Plt Count 95 L MPV 10.3 Immature Gran % (Auto) 1.100 H Neut % (Auto) 88.9 H Lymph % (Auto) 3.8 L [place] % (Auto) 6.0 Eos % (Auto) 0.1 Baso % (Auto) 0.1 Absolute Neuts (auto) 17.4 H Absolute Lymphs (auto) 0.74 L Total Counted Not Reportable Neutrophils % (Manual) Band Neutrophils % Lymphocytes % (Manual) Monocytes % (Manual) Differential Comment SCANNED Diff Path Review Toxic Granulation Platelet Estimate Immature Plt Fraction RBC Morphology Retic Count Immature Retic Fraction Retic Hgb Equivalent Haptoglobin PT 21.6 H INR 1.9 APTT 41.3 H Fibrinogen D-Dimer Quant (PE/DVT) Sodium 127 L Potassium 3.5 Chloride 94 L Carbon Dioxide 20.0 L Anion Gap 13 BUN 10 Creatinine 0.96 Estim Creat Clear Calc 107.40 Est GFR (MDRD) Af Amer 114 Est GFR (MDRD) Non-Af 94 BUN/Creatinine Ratio 10.4 Glucose 111 H Lactic Acid Calcium 8.0 L Total Bilirubin 3.50 H Direct Bilirubin AST 116 H ALT 46 Alkaline Phosphatase 96 Lactate Dehydrogenase Troponin I 0.020 Total Protein 8.1 Albumin 3.2 Globulin 4.9 H Albumin/Globulin Ratio 0.7 L Urine Color Urine Clarity Urine pH Ur Specific [place] Urine Protein Urine Glucose (UA) Urine Ketones Urine Occult Blood Urine Nitrite Urine Bilirubin Urine Urobilinogen Ur Leukocyte Esterase Urine RBC Urine WBC Ur Squamous Epith Cells Urine Bacteria Urine Mucus 08/13/18 08/13/18 08/13/18 17:50 17:50 17:50 WBC RBC Hgb Hct MCV MCH MCHC RDW RDW Differential Plt Count MPV Immature Gran % (Auto) Neut % (Auto) Lymph % (Auto) [place] % (Auto) Eos % (Auto) Baso % (Auto) Absolute Neuts (auto) Absolute Lymphs (auto) Total Counted Neutrophils % (Manual) Band Neutrophils % Lymphocytes % (Manual) Monocytes % (Manual) Differential Comment Diff Path Review Toxic Granulation Platelet Estimate Immature Plt Fraction 7.9 RBC Morphology Retic Count 1.80 H Immature Retic Fraction 18.00 H Retic Hgb Equivalent 33.9 Haptoglobin PT INR APTT Fibrinogen D-Dimer Quant (PE/DVT) Sodium Potassium Chloride Carbon Dioxide Anion Gap BUN Creatinine Estim Creat Clear Calc Est GFR (MDRD) Af Amer Est GFR (MDRD) Non-Af BUN/Creatinine Ratio Glucose Lactic Acid 5.2 H* Calcium Total Bilirubin Direct Bilirubin 1.75 H AST ALT Alkaline Phosphatase Lactate Dehydrogenase Troponin I Total Protein Albumin Globulin Albumin/Globulin Ratio Urine Color Urine Clarity Urine pH Ur Specific [place] Urine Protein Urine Glucose (UA) Urine Ketones Urine Occult Blood Urine Nitrite Urine Bilirubin Urine Urobilinogen Ur Leukocyte Esterase Urine RBC Urine WBC Ur Squamous Epith Cells Urine Bacteria Urine Mucus 08/13/18 08/13/18 08/13/18 17:50 17:50 19:00 WBC RBC Hgb Hct MCV MCH MCHC RDW RDW Differential Plt Count MPV Immature Gran % (Auto) Neut % (Auto) Lymph % (Auto) [place] % (Auto) Eos % (Auto) Baso % (Auto) Absolute Neuts (auto) Absolute Lymphs (auto) Total Counted Neutrophils % (Manual) Band Neutrophils % Lymphocytes % (Manual) Monocytes % (Manual) Differential Comment Diff Path Review Toxic Granulation Platelet Estimate Immature Plt Fraction RBC Morphology Retic Count Immature Retic Fraction Retic Hgb Equivalent Haptoglobin PT INR APTT Fibrinogen 442 D-Dimer Quant (PE/DVT) 2.18 H* Sodium Potassium Chloride Carbon Dioxide Anion Gap BUN Creatinine Estim Creat Clear Calc Est GFR (MDRD) Af Amer Est GFR (MDRD) Non-Af BUN/Creatinine Ratio Glucose Lactic Acid Calcium Total Bilirubin Direct Bilirubin AST ALT Alkaline Phosphatase Lactate Dehydrogenase 290 H Troponin I Total Protein Albumin Globulin Albumin/Globulin Ratio Urine Color [place] Urine Clarity Clear Urine pH 5.0 Ur Specific [place] 1.015 Urine Protein 30 H Urine Glucose (UA) Normal Urine Ketones 15 H Urine Occult Blood 10 H Urine Nitrite Negative Urine Bilirubin 3 H Urine Urobilinogen 4 H Ur Leukocyte Esterase 25 H Urine RBC 0-5 SEEN Urine WBC 0-5 SEEN Ur Squamous Epith Cells 0-5 SEEN Urine Bacteria 1+ Urine Mucus 2+ 08/13/18 08/13/18 08/14/18 19:20 21:28 00:55 WBC RBC Hgb Hct MCV MCH MCHC RDW RDW Differential Plt Count MPV Immature Gran % (Auto) Neut % (Auto) Lymph % (Auto) [place] % (Auto) Eos % (Auto) Baso % (Auto) Absolute Neuts (auto) Absolute Lymphs (auto) Total Counted Neutrophils % (Manual) Band Neutrophils % Lymphocytes % (Manual) Monocytes % (Manual) Differential Comment Diff Path Review Toxic Granulation Platelet Estimate Immature Plt Fraction RBC Morphology Retic Count Immature Retic Fraction Retic Hgb Equivalent Haptoglobin Pending PT INR APTT Fibrinogen D-Dimer Quant (PE/DVT) Sodium Potassium Chloride Carbon Dioxide Anion Gap BUN Creatinine Estim Creat Clear Calc Est GFR (MDRD) Af Amer Est GFR (MDRD) Non-Af BUN/Creatinine Ratio Glucose Lactic Acid 5.9 H* 6.7 H* Calcium Total Bilirubin Direct Bilirubin AST ALT Alkaline Phosphatase Lactate Dehydrogenase Troponin I Total Protein Albumin Globulin Albumin/Globulin Ratio Urine Color Urine Clarity Urine pH Ur Specific [place] Urine Protein Urine Glucose (UA) Urine Ketones Urine Occult Blood Urine Nitrite Urine Bilirubin Urine Urobilinogen Ur Leukocyte Esterase Urine RBC Urine WBC Ur Squamous Epith Cells Urine Bacteria Urine Mucus 08/14/18 08/14/18 08/14/18 05:00 05:00 05:00 WBC 16.6 H RBC 4.11 L Hgb 12.0 L Hct 37.0 L MCV 90.0 MCH 29.2 MCHC 32.4 RDW 17.2 H RDW Differential 55.1 H Plt Count 88 L MPV 10.7 Immature Gran % (Auto) Neut % (Auto) Not Reportable Lymph % (Auto) [place] % (Auto) Eos % (Auto) Baso % (Auto) Absolute Neuts (auto) 15.6 H Absolute Lymphs (auto) 0.33 L Total Counted 100 Neutrophils % (Manual) 69 Band Neutrophils % 25 H Lymphocytes % (Manual) 2 L Monocytes % (Manual) 4 Differential Comment Diff Path Review Reviewed Toxic Granulation 1+ Platelet Estimate SLT DEC Immature Plt Fraction RBC Morphology NORM C+C Retic Count Immature Retic Fraction Retic Hgb Equivalent Haptoglobin PT 24.5 H INR 2.2 APTT Fibrinogen D-Dimer Quant (PE/DVT) Sodium 135 L Potassium 3.7 Chloride 101 Carbon Dioxide 20.0 L Anion Gap 14 BUN 11 Creatinine 0.90 Estim Creat Clear Calc 114.56 Est GFR (MDRD) Af Amer 124 Est GFR (MDRD) Non-Af 102 BUN/Creatinine Ratio 12.3 Glucose 107 H Lactic Acid Calcium 7.1 L Total Bilirubin 2.80 H Direct Bilirubin AST 91 H ALT 41 Alkaline Phosphatase 64 Lactate Dehydrogenase Troponin I Total Protein 6.9 Albumin 2.7 L Globulin 4.2 Albumin/Globulin Ratio 0.6 L Urine Color Urine Clarity Urine pH Ur Specific [place] Urine Protein Urine Glucose (UA) Urine Ketones Urine Occult Blood Urine Nitrite Urine Bilirubin Urine Urobilinogen Ur Leukocyte Esterase Urine RBC Urine WBC Ur Squamous Epith Cells Urine Bacteria Urine Mucus Medical Necessity - Tobacco Use Smoking Status: Current every day smoker Tobacco Use: Cigarettes Assessment/Plan All Active Problems (Last Reviewed 04/25/17 @ 08:41 by Anatoliy Rowell) Chronic sinusitis (Acute) Septic shock (Acute) Community acquired pneumonia (Acute) #1 septic shock secondary to community-acquired right lower lobe pneumonia- probably beta-hemolytic strep-continue present antibiotic coverage #2 right lower lobe community-acquired pneumonia-probable beta-hemolytic [id number] organism was positive in the sputum culture, further identification to follow #3 elevated INR-etiology unclear #4 possible cirrhosis-indicated on patient's abdominal CT #5 elevated liver enzymes-etiology unclear, possibly secondary to shock liver Code Visit Inpatient E&M: 82074 Subs Hosp L2
[2018-08-14] MEDS: Ibuprofen 600 MG Tablet PO (21:09)
[2018-08-14] MEDS: 0.9% NaCl Peripheral Flush Adult/Peds IV (23:30)
[2018-08-14] MEDS: LORazepam 2 MG/ML Syringe 1 MG IV (23:30)
[2018-08-15] VITALS (24 sets, daily range): BP systolic 116–162; BP diastolic 68–92; PULSE 70–127; RESP 12–26; TEMP 36.6–37.7; O2SAT 91–96
[2018-08-15 04:28] LABS: Absolute Neutrophil Count 9.4 X10^3/uL (2.0-7.7); Basophil# 0.01 X10^3/uL; Basophil% 0.1 % (0-1); Eosinophil# 0.01 X10^3/uL; Eosinophils% 0.1 % (0-5); Hematocrit 37.3 % (40-54); Hemoglobin 12.3 g/dl (13.0-16.5); Lymphocyte % 9.6 % (19-41); Mean Corpuscular Hgb 29.9 pg (27.0-32.0); Mean Corpuscular Volume 90.8 fL (80-94); Mean Platelet Vol. 10.7 fl (6.2-12.0); Monocyte# 0.59 X10^3/uL; Monocyte% 5.2 % (0-10); Neutrophil # 9.39 X10^3/uL (2.7-7.7); Neutrophil % 82.4 % (47-70); Platelet Count 83 K/mm3 (150-450); RBC Distribution Width CV 17.5 % (11.6-14.6); RBC Distribution Width SD 57.8 fl (35.1-43.9); Red Blood Count 4.11 M/mm3 (4.6-6.2); White Blood Count 11.4 K/mm3 (4.4-11.0)
[2018-08-15 04:30] LABS: Differential Indicated SCAN CRITERIA MET; POSITIVE COUNT YES; POSITIVE DIFFERENTIAL NO; POSITIVE MORPHOLOGY YES
[2018-08-15 04:40] LABS: International Normalized Ratio 1.9
[2018-08-15 04:41] LABS: Partial Thromboplast Time 41.5 Seconds (24.1-36.2)
[2018-08-15 04:42] LABS: ALB/GLOB Ratio 0.6 RATIO (0.9-2.4); AST(SGOT) 84 U/L (15-37); Alanine Aminotransfer ALT/SGPT 40 U/L (16-61); Albumin, Serum 2.6 g/dL (3.2-5.0); Alkaline Phosphatase 58 U/L (45-117); Anion Gap 9 (5-15); BUN 14 mg/dL (7-18); Calcium,Total 7.8 mg/dL (8.5-10.1); Chloride 104 mmol/L (98-107); EST Glomerular Filtration Rate 136 mL/min (>60); Est Glom Filt Rate - Afr Amer 164 mL/min (>60); Estimated Creatinine Clearance 147.29 ml/min; Globulin 4.1 g/dL (2.2-4.2); Glucose 110 mg/dL (74-106); Potassium 3.4 mmol/L (3.5-5.1); Protein, Total 6.7 g/dL (6.4-8.2); Sodium Level 139 mmol/L (136-145)
[2018-08-15 05:13] LABS: Differential Comment SCANNED
--- NOTE | 2018-08-15 07:03 | PCM.PN.INT ---
Subjective: Patient did okay overnight. Nursing did report periodic desaturations and apneic events that appeared like obstructive sleep apnea. No bleeding complications have been reported. Patient did have some tremulousness overnight and was given 1 dose of Ativan. Patient had significant improvement in heart rate and blood pressure following dosage. Patient with no complaints this morning. General: Alert, Oriented x3, Cooperative, No apparent distress, - - Slightly diaphoretic. Obese. No conversational dyspnea. HEENT: Atraumatic, PERRLA, EOMI, Normocephalic, - - Slight scleral injection without icterus Oral: Moist Mucosa, No Gingival or Mucosal Lesions/ Ulcerations Neck: Supple, No JVD, No Nodes, Trachea Midline Lungs: No rhonchi, No rales, Diminished, Wheezes - End exhalation, - - Symmetric expansion. Cardiovascular: Regular rate, Regular Rhythm, Normal S1, Normal S2, No murmurs, No rub noted, No Gallop Abdomen: Bowel Sounds Present, Soft, Non Tender, Non-Distended, Obese Extremities: No clubbing, No cyanosis, Edema - Trace Skin: No rashes, No breakdown Musculoskeletal: No Tenderness to Palpation of Joints or Extremities Lymphatic: No Cervical, Supraclavicular, or Inguinal Adenopathy Neurological: Cranial nerves II-XII grossly intact, Neuro grossly intact, Motor Exam 5/5 strength throughout Psych/Mental Status: Normal Affect, Appropriate Vital Signs Temp Pulse Resp BP Pulse Ox 36.6 C 89 14 116/79 93 08/15/18 04:00 08/15/18 06:00 08/15/18 06:00 08/15/18 06:00 08/15/18 06:00 Oxygen Flow Rate (L/min) 3 Oxygen Delivery Method Nasal Cannula Weight: 115.3 kg Body Mass Index (BMI) 37.6 Finger Stick Blood Glucose 87 Intake and Output for Last 24 Hours 08/13/18 08/14/18 08/15/18 23:59 23:59 23:59 Intake Total 714.4 / 714.4 4204 / 4204 122.5 / 122.5 Output Total 1200 / 1200 1775 / 1775 350 / 350 Balance -485.6 / -485.6 2429 / 2429 -227.5 / -227.5 Labs (Last 48 Hours) 08/13/18 08/13/18 08/13/18 17:50 17:50 17:50 WBC 19.5 H RBC 4.18 L Hgb 12.6 L Hct 37.5 L MCV 89.7 MCH 30.1 MCHC 33.6 RDW 16.9 H RDW Differential 55.1 H Plt Count 95 L MPV 10.3 Immature Gran % (Auto) 1.100 H Neut % (Auto) 88.9 H Lymph % (Auto) 3.8 L [place] % (Auto) 6.0 Eos % (Auto) 0.1 Baso % (Auto) 0.1 Absolute Neuts (auto) 17.4 H Absolute Lymphs (auto) 0.74 L Total Counted Not Reportable Neutrophils % (Manual) Band Neutrophils % Lymphocytes % (Manual) Monocytes % (Manual) Differential Comment SCANNED Diff Path Review Toxic Granulation Platelet Estimate Immature Plt Fraction RBC Morphology Retic Count Immature Retic Fraction Retic Hgb Equivalent Haptoglobin PT 21.6 H INR 1.9 APTT 41.3 H Fibrinogen D-Dimer Quant (PE/DVT) Sodium 127 L Potassium 3.5 Chloride 94 L Carbon Dioxide 20.0 L Anion Gap 13 BUN 10 Creatinine 0.96 Estim Creat Clear Calc 107.40 Est GFR (MDRD) Af Amer 114 Est GFR (MDRD) Non-Af 94 BUN/Creatinine Ratio 10.4 Glucose 111 H Lactic Acid Calcium 8.0 L Total Bilirubin 3.50 H Direct Bilirubin AST 116 H ALT 46 Alkaline Phosphatase 96 Lactate Dehydrogenase Troponin I 0.020 Total Protein 8.1 Albumin 3.2 Globulin 4.9 H Albumin/Globulin Ratio 0.7 L Urine Color Urine Clarity Urine pH Ur Specific [place] Urine Protein Urine Glucose (UA) Urine Ketones Urine Occult Blood Urine Nitrite Urine Bilirubin Urine Urobilinogen Ur Leukocyte Esterase Urine RBC Urine WBC Ur Squamous Epith Cells Urine Bacteria Urine Mucus 08/13/18 08/13/18 08/13/18 17:50 17:50 17:50 WBC RBC Hgb Hct MCV MCH MCHC RDW RDW Differential Plt Count MPV Immature Gran % (Auto) Neut % (Auto) Lymph % (Auto) [place] % (Auto) Eos % (Auto) Baso % (Auto) Absolute Neuts (auto) Absolute Lymphs (auto) Total Counted Neutrophils % (Manual) Band Neutrophils % Lymphocytes % (Manual) Monocytes % (Manual) Differential Comment Diff Path Review Toxic Granulation Platelet Estimate Immature Plt Fraction 7.9 RBC Morphology Retic Count 1.80 H Immature Retic Fraction 18.00 H Retic Hgb Equivalent 33.9 Haptoglobin PT INR APTT Fibrinogen D-Dimer Quant (PE/DVT) Sodium Potassium Chloride Carbon Dioxide Anion Gap BUN Creatinine Estim Creat Clear Calc Est GFR (MDRD) Af Amer Est GFR (MDRD) Non-Af BUN/Creatinine Ratio Glucose Lactic Acid 5.2 H* Calcium Total Bilirubin Direct Bilirubin 1.75 H AST ALT Alkaline Phosphatase Lactate Dehydrogenase Troponin I Total Protein Albumin Globulin Albumin/Globulin Ratio Urine Color Urine Clarity Urine pH Ur Specific [place] Urine Protein Urine Glucose (UA) Urine Ketones Urine Occult Blood Urine Nitrite Urine Bilirubin Urine Urobilinogen Ur Leukocyte Esterase Urine RBC Urine WBC Ur Squamous Epith Cells Urine Bacteria Urine Mucus 08/13/18 08/13/18 08/13/18 17:50 17:50 19:00 WBC RBC Hgb Hct MCV MCH MCHC RDW RDW Differential Plt Count MPV Immature Gran % (Auto) Neut % (Auto) Lymph % (Auto) [place] % (Auto) Eos % (Auto) Baso % (Auto) Absolute Neuts (auto) Absolute Lymphs (auto) Total Counted Neutrophils % (Manual) Band Neutrophils % Lymphocytes % (Manual) Monocytes % (Manual) Differential Comment Diff Path Review Toxic Granulation Platelet Estimate Immature Plt Fraction RBC Morphology Retic Count Immature Retic Fraction Retic Hgb Equivalent Haptoglobin PT INR APTT Fibrinogen 442 D-Dimer Quant (PE/DVT) 2.18 H* Sodium Potassium Chloride Carbon Dioxide Anion Gap BUN Creatinine Estim Creat Clear Calc Est GFR (MDRD) Af Amer Est GFR (MDRD) Non-Af BUN/Creatinine Ratio Glucose Lactic Acid Calcium Total Bilirubin Direct Bilirubin AST ALT Alkaline Phosphatase Lactate Dehydrogenase 290 H Troponin I Total Protein Albumin Globulin Albumin/Globulin Ratio Urine Color [place] Urine Clarity Clear Urine pH 5.0 Ur Specific [place] 1.015 Urine Protein 30 H Urine Glucose (UA) Normal Urine Ketones 15 H Urine Occult Blood 10 H Urine Nitrite Negative Urine Bilirubin 3 H Urine Urobilinogen 4 H Ur Leukocyte Esterase 25 H Urine RBC 0-5 SEEN Urine WBC 0-5 SEEN Ur Squamous Epith Cells 0-5 SEEN Urine Bacteria 1+ Urine Mucus 2+ 08/13/18 08/13/18 08/14/18 19:20 21:28 00:55 WBC RBC Hgb Hct MCV MCH MCHC RDW RDW Differential Plt Count MPV Immature Gran % (Auto) Neut % (Auto) Lymph % (Auto) [place] % (Auto) Eos % (Auto) Baso % (Auto) Absolute Neuts (auto) Absolute Lymphs (auto) Total Counted Neutrophils % (Manual) Band Neutrophils % Lymphocytes % (Manual) Monocytes % (Manual) Differential Comment Diff Path Review Toxic Granulation Platelet Estimate Immature Plt Fraction RBC Morphology Retic Count Immature Retic Fraction Retic Hgb Equivalent Haptoglobin Pending PT INR APTT Fibrinogen D-Dimer Quant (PE/DVT) Sodium Potassium Chloride Carbon Dioxide Anion Gap BUN Creatinine Estim Creat Clear Calc Est GFR (MDRD) Af Amer Est GFR (MDRD) Non-Af BUN/Creatinine Ratio Glucose Lactic Acid 5.9 H* 6.7 H* Calcium Total Bilirubin Direct Bilirubin AST ALT Alkaline Phosphatase Lactate Dehydrogenase Troponin I Total Protein Albumin Globulin Albumin/Globulin Ratio Urine Color Urine Clarity Urine pH Ur Specific [place] Urine Protein Urine Glucose (UA) Urine Ketones Urine Occult Blood Urine Nitrite Urine Bilirubin Urine Urobilinogen Ur Leukocyte Esterase Urine RBC Urine WBC Ur Squamous Epith Cells Urine Bacteria Urine Mucus 08/14/18 08/14/18 08/14/18 05:00 05:00 05:00 WBC 16.6 H RBC 4.11 L Hgb 12.0 L Hct 37.0 L MCV 90.0 MCH 29.2 MCHC 32.4 RDW 17.2 H RDW Differential 55.1 H Plt Count 88 L MPV 10.7 Immature Gran % (Auto) Neut % (Auto) Not Reportable Lymph % (Auto) [place] % (Auto) Eos % (Auto) Baso % (Auto) Absolute Neuts (auto) 15.6 H Absolute Lymphs (auto) 0.33 L Total Counted 100 Neutrophils % (Manual) 69 Band Neutrophils % 25 H Lymphocytes % (Manual) 2 L Monocytes % (Manual) 4 Differential Comment Diff Path Review Reviewed Toxic Granulation 1+ Platelet Estimate SLT DEC Immature Plt Fraction RBC Morphology NORM C+C Retic Count Immature Retic Fraction Retic Hgb Equivalent Haptoglobin PT 24.5 H INR 2.2 APTT Fibrinogen D-Dimer Quant (PE/DVT) Sodium 135 L Potassium 3.7 Chloride 101 Carbon Dioxide 20.0 L Anion Gap 14 BUN 11 Creatinine 0.90 Estim Creat Clear Calc 114.56 Est GFR (MDRD) Af Amer 124 Est GFR (MDRD) Non-Af 102 BUN/Creatinine Ratio 12.3 Glucose 107 H Lactic Acid Calcium 7.1 L Total Bilirubin 2.80 H Direct Bilirubin AST 91 H ALT 41 Alkaline Phosphatase 64 Lactate Dehydrogenase Troponin I Total Protein 6.9 Albumin 2.7 L Globulin 4.2 Albumin/Globulin Ratio 0.6 L Urine Color Urine Clarity Urine pH Ur Specific [place] Urine Protein Urine Glucose (UA) Urine Ketones Urine Occult Blood Urine Nitrite Urine Bilirubin Urine Urobilinogen Ur Leukocyte Esterase Urine RBC Urine WBC Ur Squamous Epith Cells Urine Bacteria Urine Mucus 08/15/18 08/15/18 08/15/18 04:05 04:05 04:05 WBC 11.4 H RBC 4.11 L Hgb 12.3 L Hct 37.3 L MCV 90.8 MCH 29.9 MCHC 33.0 RDW 17.5 H RDW Differential 57.8 H Plt Count 83 L MPV 10.7 Immature Gran % (Auto) 2.600 H Neut % (Auto) 82.4 H Lymph % (Auto) 9.6 L [place] % (Auto) 5.2 Eos % (Auto) 0.1 Baso % (Auto) 0.1 Absolute Neuts (auto) 9.4 H Absolute Lymphs (auto) 1.10 Total Counted Not Reportable Neutrophils % (Manual) Band Neutrophils % Lymphocytes % (Manual) Monocytes % (Manual) Differential Comment SCANNED Diff Path Review May foll Toxic Granulation Platelet Estimate Immature Plt Fraction RBC Morphology Retic Count Immature Retic Fraction Retic Hgb Equivalent Haptoglobin PT 22.0 H INR 1.9 APTT 41.5 H Fibrinogen D-Dimer Quant (PE/DVT) Sodium 139 Potassium 3.4 L Chloride 104 Carbon Dioxide 26.0 Anion Gap 9 BUN 14 Creatinine 0.70 Estim Creat Clear Calc 147.29 Est GFR (MDRD) Af Amer 164 Est GFR (MDRD) Non-Af 136 BUN/Creatinine Ratio 20.0 Glucose 110 H Lactic Acid Calcium 7.8 L Total Bilirubin 2.40 H Direct Bilirubin AST 84 H ALT 40 Alkaline Phosphatase 58 Lactate Dehydrogenase Troponin I Total Protein 6.7 Albumin 2.6 L Globulin 4.1 Albumin/Globulin Ratio 0.6 L Urine Color Urine Clarity Urine pH Ur Specific [place] Urine Protein Urine Glucose (UA) Urine Ketones Urine Occult Blood Urine Nitrite Urine Bilirubin Urine Urobilinogen Ur Leukocyte Esterase Urine RBC Urine WBC Ur Squamous Epith Cells Urine Bacteria Urine Mucus Microbiology 08/13/18 18:48 Sputum, Expectorated/Coughed Gram Stain - Final 08/13/18 18:48 Sputum, Expectorated/Coughed Respiratory Culture - Preliminary Beta hemolytic organism 08/14/18 02:35 Stool Enteric Bacteriology - Final 08/14/18 02:35 Stool C. difficile DNA Amplification - Final 08/13/18 19:00 Urine, Clean Catch Streptococcus pneumoniae Antigen (M - Final 08/13/18 19:00 Urine, Clean Catch Legionella Antigen - Final Clinical Impression(s) from Imaging Studies Gallbladder Ultrasound 08/14/18 00:16 IMPRESSION: Moderate hepatomegaly with fatty infiltration of the liver Electronically Signed: Severino Zhang, at 13:07 EDT Tel , Service support , Medical Necessity - Tobacco Use Smoking Status: Current every day smoker Tobacco Use: Cigarettes Assessment/Plan All Active Problems (Last Reviewed 04/25/17 @ 08:41 by Anatoliy Rowell) Chronic sinusitis (Acute) Septic shock (Acute) Community acquired pneumonia (Acute) RECOMMENDATIONS: 1. Initiate CIWA protocol with Ativan, decrease Librium 2. Check coagulation studies daily 3. Complete 5-day burst of prednisone 4. Monitor for signs and symptoms of withdrawal 5. Wean oxygen as tolerated 6. Okay to leave the intensive care unit from my perspective IMPRESSIONS: 1. Severe sepsis secondary to right lower lobe pneumonia and pansinusitis Patient reportedly has been treated with multiple rounds of antibiotics as an outpatient. Patient is currently on community-acquired antibiotic therapy. Fever curve appears to be improving. Patient did have significant improvement in leukocytosis today indicating that current antibiotics are likely appropriate. 2. Coagulopathy/potential DIC Patient does have severe sepsis, so a concern for DIC is appropriate. Clinical suspicion is patient does not have DIC as status has remained relatively stable for over 24 hours. Some concern patient may have a coagulopathy secondary to alcoholic liver disease given cirrhotic finding on CT scan, fatty infiltration of the liver and elevated coagulation studies. 3. Asthma exacerbation secondary to pneumonia Patient with rhonchi and wheezing noted on physical exam. Patient is typically treated with Advair as an outpatient. Will continue p.o. prednisone for 5 days. Continue with aerosol therapy. Aggressive pulmonary toileting and wean oxygen as tolerated. 4. Suspected alcohol abuse Patient minimizes alcohol intake. Patient's reportedly reporting much more intake. Patient has not had any reported issues with cessation previously, but does have some early findings of cirrhosis on CT scan. We will continue to monitor. Initiate CIWA protocol 5. Hyponatremia Resolved. Some concern for hypovolemic hyponatremia on presentation. Patient has responded well to IV fluids. Patient may have an issue with alcohol abuse and cirrhosis also. Continue to monitor closely. 6. History of chronic sinusitis/ADD/obesity Complicates care, management, recovery and prognosis. Okay to hold baseline Adderall from my perspective Code Visit Inpatient E&M: 58234 Subs Hosp L3
[2018-08-15] MEDS: Folic Acid 1 MG Tablet PO ×2 (07:55→17:28)
[2018-08-15] MEDS: predniSONE 20 MG Tablet 40 MG PO (07:55)
[2018-08-15] MEDS: Thiamine Hydrochloride 100 MG Tablet PO (07:55)
[2018-08-15] MEDS: Acetaminophen 325 MG Tablet 650 MG PO ×2 (08:02→17:28)
[2018-08-15] MEDS: LORazepam 1 MG Tablet 2 MG PO (08:03)
--- NOTE | 2018-08-15 09:18 | CASEMGMT ---
SW participated in ICU rounds. SW checked back w/pt in regard to LW/POA. Pt states he and his are legally (just have last names). SW explained without the POA forms, pt's decision maker would default to . Pt is fine with this but did take a copy of POA papers, SW gave him the number to the SW department should he want to complete the POA forms in the future. SW also spoke w/pt about alcohol use. Pt does not see this as an issue, does have a counselor and plans to follow up w/the counselor at discharge. Pt declined any referrals. SW remains available for any additional social service needs. TIMOTHY Hughes
[2018-08-15] MEDS: chlordiazePOXIDE 25 MG Capsule PO ×2 (10:57→18:38)
[2018-08-15] MEDS: Amox/Clavulanate 875 MG Tablet PO ×2 (10:57→17:29)
[2018-08-15] MEDS: guaiFENesin 1,200 MG Tablet 1200 MG PO ×2 (10:57→21:37)
[2018-08-15 11:23] LABS: Haptoglobin 111 mg/dL (34-200)
--- NOTE | 2018-08-15 11:39 | CASEMGMT ---
RN ANJEL NOTE: Pt remains on O2 and anticipate may discharge over the weekend. MURALI HOBBS to room to talk with pt and who is at bedside. They were made aware pt may need oxygen @ discharge. states prefers [employer] for [employer]. Green sheet placed on chart with instructions for Home O2 if pt discharges over the weekend. Sammy DAVIDN RN CM
--- NOTE | 2018-08-15 13:15 | RAD_ITS ---
STUDY: X-RAY CHEST REASON FOR EXAM: Male, 37 years old. Shortness of breath TECHNIQUE: Frontal view of the chest COMPARISON: 04/15/2018 FINDINGS: There is a stable right lower lobe infiltrate. The lungs are otherwise clear. There are no pleural effusions. There is no pneumothorax. The heart is normal in size. The visualized osseous structures are within normal limits. RAD/Chest 1 View (Portable) IMPRESSION: Stable right lower lobe infiltrate. Electronically Signed: Damon Houston, at 16:32 EDT Tel , Service support ,
--- NOTE | 2018-08-15 13:19 | PCM.PROGNOTE ---
Patient Problems: Active and Suspected Problems (Last Reviewed 04/25/17 @ 08:41 by Anatoliy Rowell) Chronic sinusitis (Acute) Septic shock (Acute) Community acquired pneumonia (Acute) Subjective: Pt remains on O2, unable to be weaned off yet. He does not have a hx of O2 use, does have hx of asthma, takes advair and prn albuterol for this. He does smoke 2-3 cig/day. Does not want patch at this time. No fever/chills. Nonproductive cough. No CP. No LE edema. Tx'd out of the ICU today. Reports mild abdominal bloating, has not eaten in 2 days, very hungry. Some flatus this AM, no BM. No abdominal pain. - Physical Exam General: Alert, Oriented x3, Cooperative HEENT: Atraumatic, PERRLA, EOMI, Normocephalic Neck: Supple, No JVD, Negative Carotid Bruits Lungs: Clear to auscultation, Diminished Cardiovascular: Regular rate, No murmurs Abdomen: Bowel Sounds Present, Soft, Non Tender Extremities: No edema, Capillary Refill Less than 3 Seconds Skin: No rashes, No breakdown Musculoskeletal: No Tenderness to Palpation of Joints or Extremities Neurological: Cranial nerves II-XII grossly intact Psych/Mental Status: Normal Affect, Appropriate, Alert and oriented to time, place, person, mood and affect Vital Signs Temp Pulse Resp BP Pulse Ox 99.7 F H 99 26 H 139/76 H 94 08/15/18 13:07 08/15/18 12:30 08/15/18 13:07 08/15/18 12:30 08/15/18 13:07 Oxygen Flow Rate (L/min) 4 Oxygen Delivery Method Nasal Cannula Weight: 254 lb 3.088 oz Body Mass Index (BMI) 37.6 Finger Stick Blood Glucose 87 Intake and Output for Last 24 Hours 08/13/18 08/14/18 08/15/18 23:59 23:59 23:59 Intake Total 714.4 / 714.4 4204 / 4204 242.5 / 242.5 Output Total 1200 / 1200 1775 / 1775 350 / 350 Balance -485.6 / -485.6 2429 / 2429 -107.5 / -107.5 Microbiology Past 72 Hours 08/13/18 19:00 Urine Culture - Final Urine, Clean Catch GPC Poss Enterococcus sp 08/13/18 18:48 Gram Stain - Final Sputum, Expectorated/Coughed Respiratory Culture - Preliminary Staphylococcus aureus Streptococcus pneumoniae 08/14/18 02:35 Enteric Bacteriology - Final Stool 08/14/18 02:35 C. difficile DNA Amplification - Final Stool 08/13/18 19:00 Streptococcus pneumoniae Antigen (M - Final Urine, Clean Catch 08/13/18 19:00 Legionella Antigen - Final Urine, Clean Catch Laboratory Tests Past 24 Hrs 08/13/18 08/15/18 08/15/18 19:20 04:05 04:05 WBC 11.4 H RBC 4.11 L Hgb 12.3 L Hct 37.3 L MCV 90.8 MCH 29.9 MCHC 33.0 RDW 17.5 H RDW Differential 57.8 H Plt Count 83 L MPV 10.7 Immature Gran % (Auto) 2.600 H Neut % (Auto) 82.4 H Lymph % (Auto) 9.6 L [place] % (Auto) 5.2 Eos % (Auto) 0.1 Baso % (Auto) 0.1 Absolute Neuts (auto) 9.4 H Absolute Lymphs (auto) 1.10 Total Counted Not Reportable Differential Comment SCANNED Diff Path Review May foll Haptoglobin 111 PT 22.0 H INR 1.9 APTT 41.5 H Sodium Potassium Chloride Carbon Dioxide Anion Gap BUN Creatinine Estim Creat Clear Calc Est GFR (MDRD) Af Amer Est GFR (MDRD) Non-Af BUN/Creatinine Ratio Glucose Calcium Total Bilirubin AST ALT Alkaline Phosphatase Total Protein Albumin Globulin Albumin/Globulin Ratio 08/15/18 04:05 WBC RBC Hgb Hct MCV MCH MCHC RDW RDW Differential Plt Count MPV Immature Gran % (Auto) Neut % (Auto) Lymph % (Auto) [place] % (Auto) Eos % (Auto) Baso % (Auto) Absolute Neuts (auto) Absolute Lymphs (auto) Total Counted Differential Comment Diff Path Review Haptoglobin PT INR APTT Sodium 139 Potassium 3.4 L Chloride 104 Carbon Dioxide 26.0 Anion Gap 9 BUN 14 Creatinine 0.70 Estim Creat Clear Calc 147.29 Est GFR (MDRD) Af Amer 164 Est GFR (MDRD) Non-Af 136 BUN/Creatinine Ratio 20.0 Glucose 110 H Calcium 7.8 L Total Bilirubin 2.40 H AST 84 H ALT 40 Alkaline Phosphatase 58 Total Protein 6.7 Albumin 2.6 L Globulin 4.1 Albumin/Globulin Ratio 0.6 L Medical Necessity - Tobacco Use Smoking Status: Current every day smoker Tobacco Use: Cigarettes Assessment/Plan All Active Problems (Last Reviewed 04/25/17 @ 08:41 by Anatoliy Rowell) Chronic sinusitis (Acute) Septic shock (Acute) Community acquired pneumonia (Acute) 1. Septic shock 2/2 CAP, with acute hypoxic respiratory failure - RLL, culture shows staph aureus and Strep pneumo. On augmentin, changed from zosyn this AM. Swab for MRSA. Failed o/p abx. Still requiring 3-4 lpm. Blood cx pending. Urine with GPC possibly Enterococcus. WBCs improved, no fever. CXR in AM. Continue IS therapy. 2. Abnormal LFTs, probably shock liver - abdominal US without acute process. Possibly chronic liver abnormalities from suspected alcoholism. CT abdomen shows possible cirrhosis. Will need close follow up / abstinence from alcohol. 3.Asthma exacerbation - resolved. continue po prednisone 4. Probably alcohol abuse - [facility] protocol, librium, ativan, folate/thiamine 5. Thrombocytopenia - possibly 2/2 #2, cirrhosis, liver injury. Continue to trend. DVT ppx: early ambulation DC planning: wean o2. may need home o2 This patient was seen by Lopez Ocampo PA-C under the supervision of Dr. Pichardo.
[2018-08-15] MEDS: Ipratropium/Albuterol Sulfate 3 ML AMPUL.NEB INHALATION ×2 (13:36→19:19)
[2018-08-15 14:16] LABS: Base Excess 1 mmol/L (-2 to +2); Bicarbonate 24.6 mmol/L (22-26); Blood Gas Specimen Type ART; O2 Delivery Device Nasal Can; PO2 57 mmHG (75-100); SITE L Radial; SO2 91 % (95-99); Time Given 1411; Total Carbon Dioxide 26 mmol/L; pCO2 35.2 mmHg (35-45); pH 7.45 (7.35-7.45)
[2018-08-16] VITALS (11 sets, daily range): BP systolic 128–148; BP diastolic 64–92; PULSE 86–117; RESP 15–22; TEMP 36.8–37.1; O2SAT 85–97
[2018-08-16] MEDS: Acetaminophen 325 MG Tablet 650 MG PO ×2 (04:24→17:33)
[2018-08-16] MEDS: chlordiazePOXIDE 25 MG Capsule PO (04:24)
[2018-08-16] MEDS: Ipratropium/Albuterol Sulfate 3 ML AMPUL.NEB INHALATION ×2 (05:02→11:34)
[2018-08-16 07:12] LABS: International Normalized Ratio 1.7; Prothrombin Time (Protime)PT. 19.4 SECONDS (11.7-14.9)
[2018-08-16 07:15] LABS: Absolute Lymphocyte Count 1.41 X10^3/ul (0.83-4.51); Absolute Neutrophil Count 6.9 X10^3/uL (2.0-7.7); Basophil# 0.02 X10^3/uL; Basophil% 0.2 % (0-1); Eosinophil# 0.18 X10^3/uL; Eosinophils% 1.8 % (0-5); Hematocrit 36.4 % (40-54); Hemoglobin 11.9 g/dl (13.0-16.5); Lymphocyte # 1.41 X10^3/ul (4.0); Lymphocyte % 14.2 % (19-41); Mean Corp Hgb Conc 32.7 g/gl (32-36); Mean Corpuscular Volume 91.7 fL (80-94); Monocyte# 1.38 X10^3/uL; Monocyte% 13.9 % (0-10); Neutrophil # 6.88 X10^3/uL (2.7-7.7); Neutrophil % 69.3 % (47-70); Platelet Count 110 K/mm3 (150-450); RBC Distribution Width CV 17.4 % (11.6-14.6); RBC Distribution Width SD 58.8 fl (35.1-43.9); Red Blood Count 3.97 M/mm3 (4.6-6.2); White Blood Count 9.9 K/mm3 (4.4-11.0)
[2018-08-16 07:29] LABS: Differential Indicated SCAN CRITERIA MET; POSITIVE COUNT NO; POSITIVE DIFFERENTIAL NO; POSITIVE MORPHOLOGY YES
[2018-08-16 07:34] LABS: Anion Gap 9 (5-15); BUN 13 mg/dL (7-18); BUN/Creat Ratio 23.4 RATIO (10-20); Calcium,Total 8.3 mg/dL (8.5-10.1); Chloride 105 mmol/L (98-107); Creatinine, Serum 0.56 mg/dL (0.70-1.30); EST Glomerular Filtration Rate 177 mL/min (>60); Est Glom Filt Rate - Afr Amer 214 mL/min (>60); Estimated Creatinine Clearance 184.11 ml/min; Glucose 90 mg/dL (74-106); Potassium 3.1 mmol/L (3.5-5.1); Sodium Level 141 mmol/L (136-145)
--- NOTE | 2018-08-16 07:50 | PCM.PN.INT ---
Subjective: Patient transferred out of the intensive care unit yesterday. Patient feels subjectively improved compared to previous. Patient is still requiring supplemental oxygen and stated that his cough was significant yesterday when he tried to ambulate. Patient denies any bleeding complications. General: Alert, Oriented x3, Cooperative, No apparent distress, - - Obese. No conversational dyspnea. HEENT: Atraumatic, PERRLA, EOMI, Normocephalic, - - Slight scleral injection without icterus Oral: Moist Mucosa, No Gingival or Mucosal Lesions/ Ulcerations Neck: Supple, No JVD, No Nodes, Trachea Midline Lungs: No rhonchi, No rales, Diminished, Wheezes - Sporadic Cardiovascular: Normal S1, Normal S2, No murmurs, No rub noted, No Gallop, Tachycardic Abdomen: Bowel Sounds Present, Soft, Non Tender, Non-Distended, Obese Extremities: No clubbing, No cyanosis, No edema, - - No asterixis noted. Skin: No rashes, No breakdown Musculoskeletal: No Tenderness to Palpation of Joints or Extremities Lymphatic: No Cervical, Supraclavicular, or Inguinal Adenopathy Neurological: Cranial nerves II-XII grossly intact, Neuro grossly intact, Motor Exam 5/5 strength throughout Psych/Mental Status: Anxious, Restless Vital Signs Temp Pulse Resp BP Pulse Ox 36.8 C 92 21 H 148/92 H 95 08/16/18 03:00 08/16/18 07:00 08/16/18 05:02 08/16/18 03:00 08/16/18 05:02 Oxygen Flow Rate (L/min) 3 Oxygen Delivery Method Nasal Cannula Weight: 110.4 kg Body Mass Index (BMI) 37.6 Finger Stick Blood Glucose 87 Intake and Output for Last 24 Hours 08/14/18 08/15/18 08/16/18 23:59 23:59 23:59 Intake Total 4204 / 4204 1592.5 / 1592.5 250 / 250 Output Total 1775 / 1775 350 / 350 Balance 2429 / 2429 1242.5 / 1242.5 250 / 250 Labs (Last 48 Hours) 08/13/18 08/14/18 08/15/18 19:20 05:00 04:05 WBC 11.4 H RBC 4.11 L Hgb 12.3 L Hct 37.3 L MCV 90.8 MCH 29.9 MCHC 33.0 RDW 17.5 H RDW Differential 57.8 H Plt Count 83 L MPV 10.7 Immature Gran % (Auto) 2.600 H Neut % (Auto) 82.4 H Lymph % (Auto) 9.6 L [place] % (Auto) 5.2 Eos % (Auto) 0.1 Baso % (Auto) 0.1 Absolute Neuts (auto) 9.4 H Absolute Lymphs (auto) 1.10 Total Counted Not Reportable Differential Comment SCANNED Diff Path Review Reviewed June foll Haptoglobin 111 PT INR APTT Specimen Type Sample Site pH Bicarbonate Actual POC Total CO2 Base Excess O2 Saturation ABG pCO2 ABG pO2 O2 Delivery Device Liter Flow Blood Gas Notified Whom Blood Gas Notified Time Sodium Potassium Chloride Carbon Dioxide Anion Gap BUN Creatinine Estim Creat Clear Calc Est GFR (MDRD) Af Amer Est GFR (MDRD) Non-Af BUN/Creatinine Ratio Glucose Calcium Total Bilirubin AST ALT Alkaline Phosphatase Total Protein Albumin Globulin Albumin/Globulin Ratio 08/15/18 08/15/18 08/15/18 04:05 04:05 14:12 WBC RBC Hgb Hct MCV MCH MCHC RDW RDW Differential Plt Count MPV Immature Gran % (Auto) Neut % (Auto) Lymph % (Auto) [place] % (Auto) Eos % (Auto) Baso % (Auto) Absolute Neuts (auto) Absolute Lymphs (auto) Total Counted Differential Comment Diff Path Review Haptoglobin PT 22.0 H INR 1.9 APTT 41.5 H Specimen Type ART Sample Site L Radial pH 7.45 Bicarbonate Actual 24.6 POC Total CO2 26 Base Excess 1 O2 Saturation 91 L ABG pCO2 35.2 ABG pO2 57 L O2 Delivery Device Nasal Can Liter Flow 4.0 Blood Gas Notified Whom [facility] Blood Gas Notified Time 1411 Sodium 139 Potassium 3.4 L Chloride 104 Carbon Dioxide 26.0 Anion Gap 9 BUN 14 Creatinine 0.70 Estim Creat Clear Calc 147.29 Est GFR (MDRD) Af Amer 164 Est GFR (MDRD) Non-Af 136 BUN/Creatinine Ratio 20.0 Glucose 110 H Calcium 7.8 L Total Bilirubin 2.40 H AST 84 H ALT 40 Alkaline Phosphatase 58 Total Protein 6.7 Albumin 2.6 L Globulin 4.1 Albumin/Globulin Ratio 0.6 L 08/16/18 08/16/18 08/16/18 06:38 06:38 07:00 WBC 9.9 RBC 3.97 L Hgb 11.9 L Hct 36.4 L MCV 91.7 MCH 30.0 MCHC 32.7 RDW 17.4 H RDW Differential 58.8 H Plt Count 110 L MPV 11.0 Immature Gran % (Auto) 0.600 Neut % (Auto) 69.3 Lymph % (Auto) 14.2 L [place] % (Auto) 13.9 H Eos % (Auto) 1.8 Baso % (Auto) 0.2 Absolute Neuts (auto) 6.9 Absolute Lymphs (auto) 1.41 Total Counted Pending Differential Comment Diff Path Review Haptoglobin PT 19.4 H INR 1.7 APTT Specimen Type Sample Site pH Bicarbonate Actual POC Total CO2 Base Excess O2 Saturation ABG pCO2 ABG pO2 O2 Delivery Device Liter Flow Blood Gas Notified Whom Blood Gas Notified Time Sodium 141 Potassium 3.1 L Chloride 105 Carbon Dioxide 27.0 Anion Gap 9 BUN 13 Creatinine 0.56 L Estim Creat Clear Calc 184.11 Est GFR (MDRD) Af Amer 214 Est GFR (MDRD) Non-Af 177 BUN/Creatinine Ratio 23.4 H Glucose 90 Calcium 8.3 L Total Bilirubin AST ALT Alkaline Phosphatase Total Protein Albumin Globulin Albumin/Globulin Ratio Microbiology 08/13/18 19:00 Urine, Clean Catch Urine Culture - Final GPC Poss Enterococcus sp 08/13/18 18:48 Sputum, Expectorated/Coughed Gram Stain - Final 08/13/18 18:48 Sputum, Expectorated/Coughed Respiratory Culture - Preliminary Staphylococcus aureus Streptococcus pneumoniae 08/14/18 02:35 Stool Enteric Bacteriology - Final 08/14/18 02:35 Stool C. difficile DNA Amplification - Final Clinical Impression(s) from Imaging Studies Chest X-Ray 08/15/18 13:15 IMPRESSION: Stable right lower lobe infiltrate. Electronically Signed: Damon Houston, at 16:32 EDT Tel , Service support , Medical Necessity - Tobacco Use Smoking Status: Current every day smoker Tobacco Use: Cigarettes Assessment/Plan All Active Problems (Last Reviewed 04/25/17 @ 08:41 by Anatoliy Rowell) Chronic sinusitis (Acute) Septic shock (Acute) Community acquired pneumonia (Acute) RECOMMENDATIONS: 1. Continue protocol with Ativan, Librium for 1 more day only 2. Check coagulation studies daily 3. Complete 5-day burst of prednisone 4. Monitor for signs and symptoms of withdrawal 5. Wean oxygen as tolerated 6. Increase activity as tolerated IMPRESSIONS: 1. Severe sepsis secondary to right lower lobe pneumonia secondary to pneumococcus and pansinusitis Patient reportedly has been treated with multiple rounds of antibiotics as an outpatient. Patient is currently on community-acquired antibiotic therapy. Fever curve appears to be improving. Patient did have significant improvement in leukocytosis today indicating that current antibiotics are likely appropriate. Patient has grown pneumococcus and staph aureus from his sputum. Continue aggressive pulmonary toileting. 2. Coagulopathy/potential DIC Patient does have severe sepsis, so initial concern for DIC was appropriate. Clinical suspicion is patient does not have DIC as status has remained relatively stable for over 24 hours. Some concern patient may have a coagulopathy secondary to alcoholic liver disease given cirrhotic finding on CT scan, fatty infiltration of the liver and elevated coagulation studies. This does continue to improve with time after vitamin K therapy. 3. Asthma exacerbation secondary to pneumonia Patient with rhonchi and wheezing noted on physical exam. Patient is typically treated with Advair as an outpatient. Will continue p.o. prednisone for 5 days. Continue with aerosol therapy. Aggressive pulmonary toileting and wean oxygen as tolerated. 4. Suspected alcohol abuse Patient minimizes alcohol intake. Patient's reportedly reporting much more intake. Patient has not had any reported issues with cessation previously, but does have some early findings of cirrhosis on CT scan. We will continue to monitor. Continue CIWA protocol 5. Hyponatremia Resolved. Some concern for hypovolemic hyponatremia on presentation. Patient has responded well to IV fluids. Patient may have an issue with alcohol abuse and cirrhosis also. Continue to monitor closely. 6. History of chronic sinusitis/ADD/obesity Complicates care, management, recovery and prognosis. Okay to hold baseline Adderall from my perspective Code Visit Inpatient E&M: [id number] [facility] Hosp L3
[2018-08-16] MEDS: Folic Acid 1 MG Tablet PO (09:34)
[2018-08-16] MEDS: Amox/Clavulanate 875 MG Tablet PO (09:34)
[2018-08-16] MEDS: Thiamine Hydrochloride 100 MG Tablet PO (09:36)
[2018-08-16] MEDS: predniSONE 20 MG Tablet 40 MG PO (09:36)
[2018-08-16] MEDS: guaiFENesin 1,200 MG Tablet 1200 MG PO (09:36)
[2018-08-16 09:50] LABS: Magnesium 1.5 mg/dL (1.6-2.6); Phosphorus 2.2 mg/dL (2.5-4.9)
--- NOTE | 2018-08-16 11:53 | PCM.DC ---
- Discharge Diagnoses Current Active Problems: Current Active and Chronic Problems (Last Reviewed 04/25/17 @ 08:41 by Anatoliy Rowell) Chronic sinusitis (Acute) Alcohol abuse (Chronic) Septic shock (Acute) Community acquired pneumonia (Acute) You will use the following diet at home:: Cardiac, Other - No alcohol Your food should be the consistency of: Regular Your liquids should be the consistency of: Regular/Thin Discharge Activity: Return to Normal Activity Allergies/Adverse Reactions: Allergies No Known Allergies Allergy (Verified 08/13/18 17:30) Medications to take at Discharge Albuterol Inhaler [Ventolin Hfa] 1 - 2 puff INHALATION Q4H PRN PRN 02/18/15 Dextroamphetamine/Amphetamine [Adderall 20 mg Tablet] 20 mg PO BID 02/18/15 Fluticasone/Salmeterol [Advair 250-50 Diskus] 1 puff INHALATION BID 06/02/16 Linaclotide [Linzess] 290 mcg PO BID 08/13/18 Acetaminophen [Tylenol Tablet] 650 mg PO Q6H PRN PRN tab 08/16/18 Albuterol Aerosols [Ventolin Aerosols] 2.5 mg INHALATION Q4H PRN PRN #120 vial.neb. 08/16/18 levoFLOXacin tablet [Levaquin tablet] 750 mg PO DAILY #5 tab 08/16/18 predniSONE tablet 40 mg PO DAILY@0800 #4 tab 08/16/18 The following prescriptions were given: levoFLOXacin tablet [Levaquin tablet] 750 mg PO DAILY #5 tab Transmission Status: [facility] predniSONE tablet 40 mg PO DAILY@0800 #4 tab Transmission Status: Received by IVETT GONSALEZ [facility] Albuterol Aerosols [Ventolin Aerosols] 2.5 mg INHALATION Q4H PRN PRN #120 vial.neb. PRN Reason: SOB/Wheezing Transmission Status: Received by IVETT SHAH Primary Care Physician: Ubaldo Srinivasan MD [Primary Care Provider] - Please follow up with your Primary Care Physician in: 1-2 weeks Test Results: Test results from this visit will be discussed in further detail at your follow-up appointment, if applicable. Please Follow Up With: Benny Weaver MD When: 2 weeks Proposed Discharge Date: 08/16/18
--- NOTE | 2018-08-16 14:04 | DS.PCM_ITS ---
Discharge Date and Diagnosis Date of Admission: 08/13/18 Date of Discharge: 08/16/18 - Primary Discharge Diagnosis Septic shock with acute hypoxic respiratory failure 2/2 CAP, streptococcal, possibly MRSA Acute sinusitis 2/2 streptococcus Asthma exacerbation secondary to above Abnormal LFTs suspected secondary to shock liver and underlying alcoholic cirrhosis Alcohol abuse Thrombocytopenia - Secondary Discharge Diagnosis Chronic Problems (Last Reviewed 04/25/17 @ 08:41 by Anatoliy Rowell) Alcohol abuse (Chronic) IBS (irritable bowel syndrome) (Chronic) ADD (attention deficit disorder) (Chronic) Asthma (Chronic) Hospital Course and Treatment Imaging Results: RAD/Chest PA and Lateral IMPRESSION: Mild basilar scarring/atelectasis. ADDENDUM: There is a right lower lobe consolidation. CT/Brain/Head without Contrast IMPRESSION: Normal unenhanced CT scan of the brain. Paranasal sinus disease. CT/CTA Chest W/WO Contrast IMPRESSION: No demonstrated pulmonary embolism or arterial dissection. Right lower lobe consolidation. Mild mediastinal adenopathy. Cholelithiasis. Enlarged spleen. Mild hepatic cirrhosis. CT/Sinus/Facial Bone IMPRESSION: Mucosal thickening of the visualized paranasal sinuses compatible with pansinusitis. US/Gallbladder IMPRESSION: Moderate hepatomegaly with fatty infiltration of the liver RAD/Chest 1 View (Portable) IMPRESSION: Stable right lower lobe infiltrate. Consults: Owen - Intensive Care Operations: None Procedures: None Summary of Care Provided: Hospital Course: The patient is a 37 year old M with past medical history of irritable bowel syndrome, ADD, and asthma who presented to the emergency room with fever, shortness of breath, and a productive cough that is been worsening for about 4 to 5 days. He also had shortness of breath with exertion and with relieved by rest. He reportedly had a fever of 104 at home. He also been recently treated by Dr. Marte for a sinus infection with doxy. A culture was done of his sinuses which showed strep pneumo. In the emergency room the patient appeared to be in septic shock with a markedly elevated lactic acid at 5.2, abnormal LFTs, abnormal d-dimer, white blood cell count of 19,000, fever of 103.2, tachycardic at 144, tachypneic at 27. Blood pressure was stable. He also did require up to 3 L of oxygen to maintain good saturations. Chest x-ray was consistent with right lower lobe pneumonia. Follow-up CTA of the chest did not demonstrate PE, did show infiltrate in the right lower lobe, also showed hepatosplenomegaly, mild cirrhosis. Patient does have a history of heavy drinking. He was placed on Zosyn and admitted to the ICU. CT the brain was negative. He gallbladder ultrasound was negative. Patient improved on Zosyn, and placed on CIWA protocol, Ativan, and Librium taper. He was also placed on steroids for suspected associated asthma exacerbation. He did continue to require up to 3 L of oxygen. He did not require intubation or ventilation. He was transitioned out of the ICU to the PCU. Leukocytosis resolved, fever resolved, tachycardia improved, LFTs improved. On the day of discharge is sputum culture came back positive for strep pneumo and MRSA. He had been transitioned to Augmentin and had been improving significantly with penicillins only. However as the patient does have a history of MRSA cellulitis, and given his positive sputum culture, and his failed outpatient therapy, he was transitioned to 5 days of Levaquin at discharge to complete antibiotic therapy. The MRSA was susceptible to this and it will cover both strep pneumo and MRSA. He was also given a refill for his home albuterol nebulizer treatments, and he was given a total of 5 days of prednisone therapy for his asthma. The patient could not be completely weaned off oxygen and he will require 3 L/min of oxygen via nasal cannula at all times with rest and exertion as this patient is ambulatory and active in the community. He was discharged home in stable condition. He will need to follow-up with his PCP in 1 to 2 weeks, he will also need to follow-up with pulmonology in 2 weeks. He may followu daysi Marte as needed. This patient was seen by Lopez Ocampo PA-C under the supervision of Doctor Pichardo. [] - Physical Exam General: Alert, Oriented x3, Cooperative HEENT: Atraumatic, PERRLA, EOMI, Normocephalic Neck: Supple, No JVD, Negative Carotid Bruits Lungs: Diminished, Wheezes - right sided wheeze Cardiovascular: Regular rate, No murmurs Abdomen: Bowel Sounds Present, Soft, Non Tender Extremities: No edema, Capillary Refill Less than 3 Seconds Skin: No rashes, No breakdown Musculoskeletal: No Tenderness to Palpation of Joints or Extremities Neurological: Cranial nerves II-XII grossly intact Psych/Mental Status: Normal Affect, Appropriate, Alert and oriented to time, place, person, mood and affect Vital Signs Temp Pulse Resp BP Pulse Ox 98.3 F 101 H 16 137/84 H 85 08/16/18 11:00 08/16/18 11:34 08/16/18 11:34 08/16/18 11:00 08/16/18 11:34 Oxygen Flow Rate (L/min) [ 3 AMBULATION with Oxygen] Oxygen Flow Rate (L/min) 3 Oxygen Delivery Method Nasal Cannula Weight: 243 lb 6.245 oz Body Mass Index (BMI) 37.6 Finger Stick Blood Glucose 87 Intake and Output for Last 24 Hours 08/14/18 08/15/18 08/16/18 23:59 23:59 23:59 Intake Total 4204 / 4204 1592.5 / 1592.5 900 / 900 Output Total 1775 / 1775 350 / 350 Balance 2429 / 2429 1242.5 / 1242.5 900 / 900 Microbiology Past 72 Hours 08/13/18 17:54 Blood Culture - Preliminary Blood Culture (Wb) - Anticubital Right No growth in 48 hours. 08/13/18 17:50 Blood Culture - Preliminary Blood Culture (Wb) - Anticubital Right No growth in 48 hours. 08/13/18 18:48 Gram Stain - Final Sputum, Expectorated/Coughed Respiratory Culture - Preliminary Meth. resistant Staph. aureus Streptococcus pneumoniae 08/13/18 19:00 Urine Culture - Final Urine, Clean Catch GPC Poss Enterococcus sp 08/14/18 02:35 Enteric Bacteriology - Final Stool 08/14/18 02:35 C. difficile DNA Amplification - Final Stool 08/13/18 19:00 Streptococcus pneumoniae Antigen (M - Final Urine, Clean Catch 08/13/18 19:00 Legionella Antigen - Final Urine, Clean Catch Laboratory Tests Past 24 Hrs 08/15/18 08/16/18 08/16/18 14:12 06:38 06:38 WBC 9.9 RBC 3.97 L Hgb 11.9 L Hct 36.4 L MCV 91.7 MCH 30.0 MCHC 32.7 RDW 17.4 H RDW Differential 58.8 H Plt Count 110 L MPV 11.0 Immature Gran % (Auto) 0.600 Neut % (Auto) 69.3 Lymph % (Auto) 14.2 L [place] % (Auto) 13.9 H Eos % (Auto) 1.8 Baso % (Auto) 0.2 Absolute Neuts (auto) 6.9 Absolute Lymphs (auto) 1.41 Total Counted Not Reportable PT INR Specimen Type ART Sample Site L Radial pH 7.45 Bicarbonate Actual 24.6 POC Total CO2 26 Base Excess 1 O2 Saturation 91 L ABG pCO2 35.2 ABG pO2 57 L O2 Delivery Device Nasal Can Liter Flow 4.0 Blood Gas Notified Whom [facility] Blood Gas Notified Time 1411 Sodium 141 Potassium 3.1 L Chloride 105 Carbon Dioxide 27.0 Anion Gap 9 BUN 13 Creatinine 0.56 L Estim Creat Clear Calc 184.11 Est GFR (MDRD) Af Amer 214 Est GFR (MDRD) Non-Af 177 BUN/Creatinine Ratio 23.4 H Glucose 90 Calcium 8.3 L Phosphorus Magnesium 08/16/18 08/16/18 06:38 07:00 WBC RBC Hgb Hct MCV MCH MCHC RDW RDW Differential Plt Count MPV Immature Gran % (Auto) Neut % (Auto) Lymph % (Auto) [place] % (Auto) Eos % (Auto) Baso % (Auto) Absolute Neuts (auto) Absolute Lymphs (auto) Total Counted PT 19.4 H INR 1.7 Specimen Type Sample Site pH Bicarbonate Actual POC Total CO2 Base Excess O2 Saturation ABG pCO2 ABG pO2 O2 Delivery Device Liter Flow Blood Gas Notified Whom Blood Gas Notified Time Sodium Potassium Chloride Carbon Dioxide Anion Gap BUN Creatinine Estim Creat Clear Calc Est GFR (MDRD) Af Amer Est GFR (MDRD) Non-Af BUN/Creatinine Ratio Glucose Calcium Phosphorus 2.2 L Magnesium 1.5 L Discharge Diet: Low fat/ Low Cholesterol, 2000 mg Sodium Diet Discharge Activity: Return to Normal Activity Home Medications: Medications to take at Discharge Albuterol Inhaler [Ventolin Hfa] 1 - 2 puff INHALATION Q4H PRN PRN 02/18/15 Dextroamphetamine/Amphetamine [Adderall 20 mg Tablet] 20 mg PO BID 02/18/15 Fluticasone/Salmeterol [Advair 250-50 Diskus] 1 puff INHALATION BID 06/02/16 Linaclotide [Linzess] 290 mcg PO BID 08/13/18 Acetaminophen [Tylenol Tablet] 650 mg PO Q6H PRN PRN tab 08/16/18 Albuterol Aerosols [Ventolin Aerosols] 2.5 mg INHALATION Q4H PRN PRN #120 vial.neb. 08/16/18 levoFLOXacin tablet [Levaquin tablet] 750 mg PO DAILY #5 tab 08/16/18 predniSONE tablet 40 mg PO DAILY@0800 #4 tab 08/16/18 Following Prescrptions Were Given to Patient: levoFLOXacin tablet [Levaquin tablet] 750 mg PO DAILY #5 tab Transmission Status: Received by IVETT SHAH [address] predniSONE tablet 40 mg PO DAILY@0800 #4 tab Transmission Status: Received by IVET[facility] SH[facility] RD Albuterol Aerosols [Ventolin Aerosols] 2.5 mg INHALATION Q4H PRN PRN #120 vial.neb. PRN Reason: SOB/Wheezing Transmission Status: Received by IVET[facility] SH[facility] [address] Primary Care Physician: Ubaldo Srinivasan MD [Primary Care Provider] - Please follow up with your Primary Care Physician in: 1-2 weeks Please Follow Up With: Benny Weaver MD When: 2 weeks Disposition: Home Minutes spent on discharge:: 35 Patient Condition:: Stable Medical Necessity - Tobacco Use Smoking Status: Current every day smoker Tobacco Use: Cigarettes Meaningful Use Info Meaningful Use Diagnoses (Choose all that apply): None applicable
--- NOTE | 2018-08-16 16:20 | CASEMGMT ---
Case Management Progress Note: Notified by Charge Nurse Mallika that she is unable to get in touch with [facility] to coordinate Oxygen and that she has left a VM with no return. 1610- Called [facility] at [phone], s/w Maranda and sent out order request to on-call or contact centre manager. SW called to obtain unit number to provide Maranda and at that time (same time this cm on phone, states Charge nurse Mallika currently on phone with [facility] arranging). This CM completed order as well with Maranda, states juvenile detention officer will know if it is a dbl order. Denisha Juarez RNCM
[2018-08-16] MEDS: levoFLOXacin 750 MG Tablet PO (17:33)
[2018-08-18 09:45] LABS: Pathologist Review Reviewed
--- NOTE | 2018-08-27 14:00 | CASEMGMT ---
MURALI HOBBS NOTE: Call received from pt's , asking if Dr Pichardo could complete FMLA paperwork for pt. states that Dr Pichardo had completed paperwork for pt to be off of work until September 08. RN ANJEL spoke with Dr Pichardo. He states for continuity purposes, it would be best for pt to follow up with his PCP for FMLA paperwork. made aware and voices understanding. She states pt has an appt with his PCP today @ [phone] and will discuss this with him today. Sammy FISHER RN CM
== END 2018-08-16 19:45 | disposition home or self-care (01) | DRG 871 ==
LOC: ED 17:57 → ICU 21:17 → PCU 08-15 10:19
PROVIDERS: Internal Medicine Critical Care Medicine; Physician Assistant; Admitting Provider Hospitalist; Emergency Provider Emergency Medicine; Family Provider Family Medicine; PCP Family Medicine; Referring Provider Hospitalist; Visit Provider Internal Medicine
DX: A41.9 Sepsis, unspecified organism (principal); R65.21 Severe sepsis with septic shock; J96.01 Acute respiratory failure with hypoxia; K72.00 Acute and subacute hepatic failure without coma; J15.212 Pneumonia due to Methicillin resistant Staphylococcus aureus; J13 Pneumonia due to Streptococcus pneumoniae; E87.1 Hypo-osmolality and hyponatremia; J45.901 Unspecified asthma with (acute) exacerbation; K70.30 Alcoholic cirrhosis of liver without ascites; K58.9 Irritable bowel syndrome, unspecified; F98.8 Other specified behavioral and emotional disorders with onset usually occurring in childhood and adolescence; F10.10 Alcohol abuse, uncomplicated; J01.90 Acute sinusitis, unspecified; B95.3 Streptococcus pneumoniae as the cause of diseases classified elsewhere; Z86.14 Personal history of Methicillin resistant Staphylococcus aureus infection; F17.210 Nicotine dependence, cigarettes, uncomplicated; D69.59 Other secondary thrombocytopenia
CPT/HCPCS: 36600; 70450; 70486; 71045; 71046; 71275; 76705; 80048; 80053; 81001; 82248; 82803; 83010; 83605; 83615; 83735; 84100; 84484; 85025; 85045; 85379; 85384; 85610; 85730; 87040; 87070; 87077; 87081; 87086; 87088; 87186; 87205; 87449; 87493; 87506; 93005; 94640; 97161; 97166; 97802; 99285; J7030; J7050; Q9967; A4216

== ENCOUNTER 2018-08-21 21:58 | Emergency (ER) | payer OTHER, SELFPAY ==
[2018-08-13 21:57] VITALS: BMI 37.6
[2018-08-21 22:00] VITALS: BP 119/66; PULSE 121; RESP 18; TEMP 36.9; O2SAT 94; BMI 34.5
[2018-08-21 22:03] VITALS: PULSE 114; TEMP 36.9; O2SAT 92
--- NOTE | 2018-08-21 23:20 | ED.VISSUMM ---
- ER Visit Summary Date of Service: 08/21/18 Chief Complaint: Chronic left lower extremity pain History of Present Illness: The patient is a 37 M who presents with left lower leg and ankle pain. This is actually been present since mid June. He sustained an injury. He has had ongoing pain. He has been seeing orthopedics. He recently had an MRI. He actually had scheduled follow-up with orthopedics regarding possible need for surgery. However he was admitted for community-acquired pneumonia and septic shock so missed his appointment. He complains of uncontrolled ankle pain. This is actually the same in character location and severity to the pain he was having before his hospitalization. He does not believe this is related to his recent illness but was a preceding issue. He did speak to his primary care physician who had told him that if his pain was the severe he should be evaluated in the emergency department. He otherwise denies complaints in the last few days. No fevers chest pain shortness of breath vomiting. Physical Examination: Afebrile heart rate is 114 pulse ox is 92% on 2 L Patient appears uncomfortable Moist mucous membranes Heart regular tachycardia Respiratory distress Patient does have active full range of motion of the left lower extremity he has no focal bony tenderness but does have tenderness along the lateral left ankle no deformity there is no calf tenderness edema or erythema his sensation is intact to light touch with brisk capillary refill, less than 2 seconds. Biphasic dorsalis pedis Doppler flow. Test Results: Not indicated Emergency Department Course and Treatment: Patient reports that this is the same pain that he is been having ever since an injury in June. It is not related to his recent illness but rather related to the point he missed his follow-up while he was ill. I do not believe any further diagnostic tests is necessary at this time the patient is in agreement. He was given oxycodone here. He was given a prescription for Percocet. He was discharged. Treatment Plan: [] Disposition: Discharge Impression: Left ankle pain This note was generated with [employer] dictation software. It may contain incorrect words, spelling, and punctuation that were not noted in review of the chart prior to signing ED Disposition - Plan for ED Patient: Referrals: Ubaldo Srinivasan MD [Primary Care Provider] -
[2018-08-21] MEDS: oxyCODONE 5 MG Tablet PO (23:25)
--- NOTE | 2018-08-21 23:26 | ED.DEP ---
ED Disposition - Plan for ED Patient: Prescriptions: Oxycodone HCl/Acetaminophen [Percocet 5/325] 1 tab PO Q6H PRN PRN 3 Days #12 tab PRN Reason: Pain Prescription Printed Referrals: Ubaldo Srinivasan MD [Primary Care Provider] - Additional Instructions: You were seen today for ankle pain since an injury in June. You were given pain medications. Take these as prescribed. Follow-up with orthopedics. Return for any new or worsening symptoms.
== END 2018-08-21 23:37 | disposition home or self-care (01) ==
PROVIDERS: Emergency Provider Emergency Medicine; Family Provider Family Medicine; PCP Family Medicine
DX: M25.572 Pain in left ankle and joints of left foot (principal); J45.909 Unspecified asthma, uncomplicated; F98.8 Other specified behavioral and emotional disorders with onset usually occurring in childhood and adolescence; K58.9 Irritable bowel syndrome, unspecified; Z79.899 Other long term (current) drug therapy
CPT/HCPCS: 99283

== ENCOUNTER 2018-09-04 23:10 | Emergency (ER) | payer OTHER, SELFPAY ==
[2018-08-27 10:52] VITALS: BMI 34.5
[2018-09-04 23:10] VITALS: BP 137/74; PULSE 99; RESP 20; TEMP 37.1; O2SAT 91; BMI 34.0
--- NOTE | 2018-09-04 23:38 | RAD_ITS ---
STUDY: X-RAY - LEFT ANKLE REASON FOR EXAM: Male, 37 years old. Ankle pain TECHNIQUE: 3 view(s) of the ankle. COMPARISON: None. FINDINGS: Normal visualized distal tibia and fibula. Normal medial and lateral malleoli. Normal tibiotalar articulation and ankle mortise. Normal visualized talus and calcaneus. The visualized subtalar, talonavicular, calcaneocuboid and tarsal articulations are normal. The soft tissue structures are unremarkable. RAD/Ankle min 3 Views IMPRESSION: Normal x-ray examination of the ankle. Electronically Signed: Kathie Drummond, at 0:19 EDT Tel , Service support ,
--- NOTE | 2018-09-04 23:38 | RAD_ITS ---
STUDY: X-RAY - LEFT TIBIA AND FIBULA REASON FOR EXAM: Male, 37 years old. Left tib-fib pain TECHNIQUE: 2 view(s) of the tibia and fibula were obtained. COMPARISON: None. FINDINGS: Normal visualized tibia. Normal visualized fibula. The soft tissue structures are unremarkable. RAD/Tibia & Fibula 2 Views IMPRESSION: Normal x-ray examination of the tibia and fibula. Electronically Signed: Kathie Drummond, at 0:43 EDT Tel , Service support ,
[2018-09-04] MEDS: oxyCODONE 5 MG Tablet PO (23:50)
[2018-09-04 23:59] LABS: Absolute Lymphocyte Count 1.34 X10^3/uL (0.83-4.51); Basophil# 0.05 X10^3/uL; Basophil% 0.7 % (0-1); Eosinophil# 0.14 X10^3/uL; Eosinophils% 2.1 % (0-5); Hemoglobin 12.8 g/dL (13.0-16.5); Lymphocyte # 1.34 X10^3/ul (4.0); Lymphocyte % 19.9 % (19-41); Mean Corp Hgb Conc 32.8 g/dL (32-36); Mean Corpuscular Volume 91.3 fL (80-94); Mean Platelet Vol. 9.5 fl (6.2-12.0); Monocyte# 0.21 X10^3/uL; Monocyte% 3.1 % (0-10); NRBC Flagged by Analyzer 0 % (0-5); Neutrophil # 4.97 X10^3/uL (2.7-7.7); Neutrophil % 73.9 % (47-70); Platelet Count 112 K/mm3 (150-450); RBC Distribution Width SD 57.1 fl (35.1-43.9); Red Blood Count 4.27 M/mm3 (4.6-6.2); White Blood Count 6.7 K/mm3 (4.4-11.0)
[2018-09-05 00:14] LABS: Anion Gap 6 (5-15); BUN 6 mg/dL (7-18); BUN/Creat Ratio 8.9 RATIO (10-20); Calcium,Total 8.2 mg/dL (8.5-10.1); Chloride 106 mmol/L (98-107); Creatinine, Serum 0.67 mg/dL (0.70-1.30); EST Glomerular Filtration Rate 142 mL/min (>60); Est Glom Filt Rate - Afr Amer 172 mL/min (>60); Estimated Creatinine Clearance 153.89 ml/min; Glucose 137 mg/dL (74-106); Potassium 3.8 mmol/L (3.5-5.1); Sodium Level 139 mmol/L (136-145)
--- NOTE | 2018-09-05 00:42 | ED.RN ---
lab called with critical lab results. d dimer 1.5. Dr. Etienne made aware no new orders at this time
--- NOTE | 2018-09-05 00:53 | ED.DCSUM_ITS ---
- ER Visit Summary Date of Service: 09/05/18 Chief Complaint: Left leg and ankle pain History of Present Illness: The patient is a 37 M who presents with left leg and ankle pain. This been going on for 2 months ever since an injury in which he rolled his ankle. He has had an MRI since that time. This did show an impaction fracture and bone contusion. He has been seeing orthopedics. On his most recent visit he was told that he had some bone swelling. He was admitted recently for pneumonia with septic shock however his pain was present before this and is the same character and location as the pain before his hospitalization. He does complain of shortness of breath and is on oxygen but this has been stable since discharge. He was also recently diagnosed with sarcoidosis and been referred to another legal office administrator for further care. He was previously being prescribed Percocet which was controlling his pain. Physical Examination: Afebrile pulse ox 91% on 4 L heart rate 99 Heart regular rate and rhythm Respiratory distress Patient has tenderness along the lateral left lower leg the calf is soft he does not have edema he also has some tenderness in the ankle he has brisk capillary refill normal sensation light touch no focal bony tenderness Test Results: Labs notable for d-dimer 1.5. X-rays of the tibia-fibula and ankle are normal. Emergency Department Course and Treatment: Given that he did have a hospitalization and he is having pain in the lateral leg and is bone contusion and fracture were in the foot and ankle I did obtain a d-dimer. This is elevated. However my clinical suspicion for DVT is still low. I do not believe he needs anticoagulated tonight but we can obtain an ultrasound this morning. His symptoms are improved with oxycodone. He was given a prescription for short course of Percocet. He was advised that if his symptoms have been continuing for this long he may need referral to pain management. They would prefer to follow-up with Dr. Shelby bose. Patient understands to return for new or worsening symptoms and was discharged home. Treatment Plan: [] Disposition: Discharge Impression: Left leg and ankle pain This note was generated with emoquo dictation software. It may contain incorrect words, spelling, and punctuation that were not noted in review of the chart prior to signing ED Disposition - Plan for ED Patient: Referrals: Ubaldo Srinivasan MD [Primary Care Provider] -
--- NOTE | 2018-09-05 00:57 | ED.DEP ---
ED Disposition - Plan for ED Patient: Referrals: Ubaldo Srinivasan MD [Primary Care Provider] - Additional Instructions: You were seen tonight for left leg pain that has been going on for a couple of months. Recent MRI did show some bruising of the bone. You were given a process for pain medication. I advised that he follow-up with your orthopedic surgeon. Additionally a blood test to look for clots was unable to rule out clot so you need to have an ultrasound later today. Return for any new or worsening symptoms.
--- NOTE | 2018-09-05 00:58 | ED.DEP ---
ED Disposition - Plan for ED Patient: Prescriptions: Oxycodone HCl/Acetaminophen [Percocet 5/325] 1 tab PO Q6H PRN PRN 3 Days #12 tab PRN Reason: Pain Prescription Printed Referrals: Ubaldo Srinivasan MD [Primary Care Provider] - Padma Ryan DO [STAFF PHYSICIAN] - Additional Instructions: You were seen tonight for left leg pain that has been going on for a couple of months. Recent MRI did show some bruising of the bone. You were given a process for pain medication. I advised that he follow-up with your orthopedic surgeon. Additionally a blood test to look for clots was unable to rule out clot so you need to have an ultrasound later today. Return for any new or worsening symptoms.
[2018-09-05 01:13] VITALS: BP 142/67; PULSE 71; RESP 15; O2SAT 98
== END 2018-09-05 01:36 | disposition home or self-care (01) ==
PROVIDERS: Emergency Provider Emergency Medicine; Family Provider Family Medicine; PCP Family Medicine
DX: M79.605 Pain in left leg (principal); M25.572 Pain in left ankle and joints of left foot; R06.00 Dyspnea, unspecified; R79.89 Other specified abnormal findings of blood chemistry; D86.9 Sarcoidosis, unspecified; J45.909 Unspecified asthma, uncomplicated; Z87.01 Personal history of pneumonia (recurrent); Z86.19 Personal history of other infectious and parasitic diseases; Z87.81 Personal history of (healed) traumatic fracture; Z72.0 Tobacco use
CPT/HCPCS: 73590; 73610; 80048; 85025; 85379; 99282; A4216

== ENCOUNTER → 2018-09-05 | Outpatient (CLI) | payer OTHER, SELFPAY ==
[2018-09-04 23:10] VITALS: BMI 34.0
--- NOTE | 2018-09-05 14:16 | VDLE_ITS ---
Reason For Study: LEG PAIN Procedure LEFT Exam performed in department. GSV is normal. A preliminary report was called and/or faxed CFV is compressible, spontaneous, phasic, to ED. competent, and demonstrates normal augmentation. FV is compressible, spontaneous, phasic, competent and demonstrates normal augmentation. POP V is compressible, spontaneous, phasic, competent and demonstrates normal augmentation. T/P Trunk is compressible. PTV is compressible. LT PerV is compressible. Interpretation Summary Deep veins of the left lower extremity are patent and compressible segmentally. There is no evidence of left lower extremity deep vein thrombosis. Valvular competence appears intact within the proximal deep venous system on the left . The left greater saphenous vein appears patent and compressible segmentally. Ordering Physician: Harrison Etienne Referring Physician: RAJ PATEL Performed By: Kathy Luis, SUBHA, RVT
== END | disposition home or self-care (01) ==
PROVIDERS: Family Provider Family Medicine; PCP Family Medicine; Referring Provider Emergency Medicine; Visit Provider Emergency Medicine
DX: M79.605 Pain in left leg (principal)
CPT/HCPCS: 93971

== ENCOUNTER 2018-09-24 17:06 | Emergency (ER) | payer OTHER, SELFPAY ==
[2018-09-24 17:06] VITALS: BP 152/77; PULSE 104; RESP 18; TEMP 37; O2SAT 96; BMI 35.4
[2018-09-24 17:29] VITALS: PULSE 102; RESP 18; TEMP 36.8
--- NOTE | 2018-09-24 18:15 | RAD_ITS ---
STUDY: X-RAY CHEST REASON FOR EXAM: Male, 37 years old. Possible sepsis TECHNIQUE: Single AP portable view of the chest. COMPARISON: 08/15/2018 FINDINGS: Mild scarring in the right lung base The lungs are clear and expanded. There is no demonstrated pleural abnormality. Normal size heart. Normal mediastinum and sherita. Normal visualized pulmonary arteries. Normal visualized aortic arch and descending thoracic aorta. Normal visualized thoracic spine. Normal visualized ribs, clavicles, and shoulders. There is no demonstrated abnormality of the visualized soft tissue structures of the upper abdomen. RAD/Chest 1 View (Portable) IMPRESSION: No acute findings Electronically Signed: Selvin Mcallister DO at 18:39 EDT Tel , Service support ,
[2018-09-24 18:34] VITALS: BP 158/83; PULSE 94; RESP 18; TEMP 36.8; O2SAT 96
[2018-09-24 18:45] VITALS: BP 169/85; PULSE 92; RESP 18; TEMP 36.8; O2SAT 97
[2018-09-24] MEDS: 0.9% Normal Saline 1,000 ML 999 ML IV (18:46)
[2018-09-24 18:55] LABS: Absolute Neutrophil Count 3.8 X10^3/uL (2.0-7.7); Basophil# 0.04 X10^3/uL; Basophil% 0.8 % (0-1); Eosinophil# 0.17 X10^3/uL; Eosinophils% 3.3 % (0-5); Hematocrit 33.9 % (40-54); Hemoglobin 11.3 g/dL (13.0-16.5); Lymphocyte % 15.3 % (19-41); Mean Corp Hgb Conc 33.3 g/dL (32-36); Mean Corpuscular Hgb 31.9 pg (27.0-32.0); Mean Corpuscular Volume 95.8 fL (80-94); Mean Platelet Vol. 10.7 fl (6.2-12.0); Monocyte# 0.45 X10^3/uL; Monocyte% 8.6 % (0-10); NRBC Flagged by Analyzer 0 % (0-5); Neutrophil # 3.76 X10^3/uL (2.7-7.7); Neutrophil % 71.8 % (47-70); Platelet Count 78 K/mm3 (150-450); RBC Distribution Width CV 17.5 % (11.6-14.6); RBC Distribution Width SD 61.1 fl (35.1-43.9); Red Blood Count 3.54 M/mm3 (4.6-6.2); White Blood Count 5.2 K/mm3 (4.4-11.0)
[2018-09-24 19:02] LABS: International Normalized Ratio 1.8; Prothrombin Time (Protime)PT. 20.9 SECONDS (11.7-14.9)
[2018-09-24 19:04] LABS: Partial Thromboplast Time 41.3 Seconds (24.1-36.2)
[2018-09-24 19:11] LABS: ALB/GLOB Ratio 0.7 RATIO (0.9-2.4); AST(SGOT) 94 U/L (15-37); Alanine Aminotransfer ALT/SGPT 38 U/L (16-61); Albumin, Serum 3.1 g/dL (3.2-5.0); Alkaline Phosphatase 119 U/L (45-117); Anion Gap 5 (5-15); BUN 4 mg/dL (7-18); BUN/Creat Ratio 6.3 RATIO (10-20); Calcium,Total 8.3 mg/dL (8.5-10.1); Chloride 104 mmol/L (98-107); Creatinine, Serum 0.63 mg/dL (0.70-1.30); EST Glomerular Filtration Rate 153 mL/min (>60); Est Glom Filt Rate - Afr Amer 185 mL/min (>60); Estimated Creatinine Clearance 163.66 ml/min; Globulin 4.6 g/dL (2.2-4.2); Glucose 91 mg/dL (74-106); Potassium 3.5 mmol/L (3.5-5.1); Protein, Total 7.7 g/dL (6.4-8.2); Sodium Level 137 mmol/L (136-145)
[2018-09-24 19:50] LABS: Bacteria 0 SEEN /hpf (None Seen); Mucous, Urine 0 SEEN /hpf (<or=2+); Red Blood Cells-Urine 0 SEEN /hpf (0-5)
[2018-09-24 19:52] LABS: Color, Urine Yellow (Yellow); Glucose, Dipstick Normal (Normal); Ketone-Dipstick 5 mg/dl (Negative); Leukocyte Esterase-Dipstick 25 /ul (Negative); Nitrite-Dipstick Negative (Negative); Occult Blood-Urine Negative /ul (Negative); Protein-Dipstick Negative (Negative); Urine Bilirubin Dipstick Negative (Negative); Urine Clarity Sl. Cloudy (Clear); Urine Urobilinogen 4 mg/dl (Normal)
[2018-09-24 19:54] LABS: Lactic Acid 1.9 mmol/L (0.4-2.0)
[2018-09-24 20:03] LABS: Amorphous Sediment 1+ PHOS; Squamous Epithelial Cells - UA 0-5 SEEN /hpf (0-5); White Blood Cells 0-5 SEEN /hpf (0-5)
--- NOTE | 2018-09-24 20:21 | ED.VISSUMM ---
- ER Visit Summary Date of Service: 09/24/18 Chief Complaint: Shortness of breath and fever History of Present Illness: The patient is a 37 M who reports shortness of breath and fevers increasing over the past 2 days. Associated with night sweats, coughing, and nasal stuffiness. The patient was hospitalized in the ICU in July of this year with MRSA pneumonia and septic shock. He has been feeling better since hospitalization up until 2 days ago. Physical Examination: Patient is afebrile and vital signs unremarkable except for heart rate of 102. No acute distress. Sitting, breathing, moving comfortably. Heart regular. Lungs clear. Abdomen soft. Test Results: Hemoglobin 11.3 and platelets 78, both stable. BMP unremarkable. Total bilirubin 2.8, alkaline phosphatase 119, AST 94, INR 1.8, all fairly stable. PTT 41.3. Urinalysis unremarkable. Lactate normal. Cultures pending. Chest x-ray normal. Emergency Department Course and Treatment: Patient received IV fluids while awaiting results. He presents with upper respiratory symptoms and fever with a history of MRSA pneumonia and septic shock. His work-up today did not indicate sepsis or shock. He has no sign of pneumonia. His work-up was all fairly unremarkable except for his elevated liver enzymes. He also has anemia and thrombocytopenia which are stable. He has been referred to outpatient follow-up for this. His doctors have attributed this to his regular alcohol use. They are also evaluating for other etiologies. At this time, he is improved. His work-up is stable and reassuring. I believe it is safe for that he follows up as an outpatient. He was advised that he is still at risk for sepsis and shock, but that hospitalization is not indicated at this time. It is safer for him to be out of the hospital. He will stay hydrated. Use Motrin for fever control. Return if worse. Otherwise follow-up with his doctors. Treatment Plan: As above Disposition: Discharged Impression: 1. Febrile illness 2. Elevated liver enzymes 3. Anemia 4. Thrombocytopenia This note was generated with [employer] software. It may contain incorrect words, spelling, and punctuation that were not noted in review of the chart prior to signing ED Disposition - Plan for ED Patient: Referrals: Ubaldo Srinivasan MD [Primary Care Provider] -
--- NOTE | 2018-09-24 20:25 | ED.DEP ---
ED Disposition - Plan for ED Patient: Instructions: FEBRILE ILLNESS, Uncertain Cause (Adult) Referrals: Ubaldo Srinivasan MD [Primary Care Provider] -
[2018-09-24 20:45] VITALS: BP 141/70; PULSE 103; RESP 17; RESP 20; TEMP 36.6; O2SAT 97
== END 2018-09-24 20:46 | disposition home or self-care (01) ==
LOC: ED 18:20
PROVIDERS: Emergency Provider Emergency Medicine; Family Provider Family Medicine; PCP Family Medicine
DX: R50.9 Fever, unspecified (principal); R74.8 Abnormal levels of other serum enzymes; D64.9 Anemia, unspecified; D69.6 Thrombocytopenia, unspecified; R05 Cough; R09.81 Nasal congestion; Z86.14 Personal history of Methicillin resistant Staphylococcus aureus infection; Z87.01 Personal history of pneumonia (recurrent); Z86.19 Personal history of other infectious and parasitic diseases; Z72.0 Tobacco use
CPT/HCPCS: 36415; 71045; 80053; 81001; 83605; 85025; 85610; 85730; 87040; 87086; 96360; 96361; 99284; J7030; A4216